=== PATIENT | male | born 1960 | race Caucasian/White ===

== ENCOUNTER 2019-06-16 11:34 | Emergency (ER) | payer OTHER, SELFPAY ==
--- NOTE | ~2019-06-16 | CT_ITS ---
EXAMINATION: CT lumbar spine wo con DATE: 06/16/2019 12:19 INDICATION: Low back pain. Fall. TECHNIQUE: Computed tomography (CT) of the lumbar spine was performed without intravenous contrast. A utomated exposure control and iterative reconstruction technique were employed. The dose-length produ ct was 812.73 mGy-cm. COMPARISON: [facility] AIF 11/01/2017 FINDINGS: There is an aortobifem bypass graft. There is a stent in the graft in the right external il iac artery distribution. There is 9 degrees dextrocurvature of lumbar spine. There is a burst fractur e of superior endplate of L1 with 2/5 loss of height. There is retropulsion of bone 2 mm into central spinal canal. There is mildly decreased disc height at L3-L4. The following disc levels are specific ally discussed: L1-L2: The disc does not extend beyond the endplate margin. There is mild bilateral facet joint osteo arthritis. There is no neural foraminal stenosis. There is no central canal stenosis. L2-L3: The disc is bulging. There is mild bilateral facet joint osteoarthritis. There is mild bilater al neural foraminal stenosis. There is no central canal stenosis. L3-L4: The disc is bulging. There is mild bilateral facet joint osteoarthritis. There is moderate scot ateral neural foraminal stenosis. There is mild central canal stenosis. L4-L5: The disc is bulging. There is mild bilateral facet joint osteoarthritis. There is moderate scot ateral neural foraminal stenosis. There is mild central canal stenosis. L5-S1: The disc is bulging. There is severe right and mild left facet joint osteoarthritis. There is mild right and moderate left neural foraminal stenosis. There is mild central canal stenosis. IMPRESSION: 1. Acute L1 burst fracture. 2. Moderate lumbar spondylosis. Reviewed, dictated and finalized at location A.
[2019-06-16 11:33] VITALS: BP 147/80; PULSE 77; RESP 18; TEMP 36.6; O2SAT 98
[2019-06-16] MEDS: ONDANSETRON INJ 4 MG/2 ML VIAL IV PUSH (12:22)
[2019-06-16] MEDS: MORPHINE SULFATE 4 MG/ML INJ IV PUSH ×2 (12:23→13:55)
--- NOTE | 2019-06-16 12:42 | ED.BACK ---
HPI - Back Pain/Injury General Chief Complaint: Back Pain/Injury <MEÑO England Last Filed: 06/16/19 12:47> Stated Complaint: LOW BACK PAIN <MEÑO [place] Last Filed: 06/16/19 12:47> Time Seen by Provider: 06/16/19 11:40 <MEÑO [place] Last Filed: 06/16/19 12:47> Source: patient <MEÑO [place] Filed: 06/16/19 12:47> Mode of arrival: ambulatory <MEÑO [place] Last Filed: 06/16/19 12:47> Limitations: no limitations <MEÑO [place] Filed: 06/16/19 12:47> History of Present Illness HPI Narrative: Patient is a 59-year-old male who presents to emergency department for evaluation of low back pain after falling off the back of a lawnmower onto the low back patient notes since he has had moderate aching pain across the lumbar spine patient denies head injury syncope loss of consciousness or other complaints. Patient presents per EMS injury occurred just prior to arrival. Patient denies other complaints <MEÑO [place] Last Filed: 06/16/19 12:47> Related Data Home Medications: Home Medications Medication Instructions Recorded Confirmed amlodipine 5 mg PO 06/16/19 atorvastatin 20 mg PO 06/16/19 atorvastatin 80 mg PO 06/16/19 rivaroxaban [Xarelto] 20 mg PO 06/16/19 <MEÑO [place] Last Filed: 06/16/19 12:47> Allergies/Adverse Reactions: Allergies Allergy/AdvReac Type Severity Reaction Status Date / Time No Known Allergies Allergy Verified 06/16/19 11:42 <MEÑO [place] Last Filed: 06/16/19 12:47> Review of Systems Review of Systems: All systems reviewed & are unremarkable except as noted in HPI and below <MEÑO [place] Last Filed: 06/16/19 12:47> PMFSH Family History Family History: Family History (Updated 10/13/15 @ 23:21 by DOCTOR UNKNOWN) Mother Family history of neuropathy Family history of primary malignant neoplasm of liver Patient's mother is Sibling Patient's brother is in good health Family history of malignant neoplasm of brain Patient's brother is Father Carcinoma of colon Patient's father is <Papa Causey PA-C - Last Filed: 06/16/19 12:47> Social History Social History: Social History (Updated 06/16/19 @ 12:44 by Papa Causey PA-C) Smoking status: Current every day smoker Alcohol intake: never <Papa Causey PA-C - Last Filed: 06/16/19 12:47> Exam Narrative: Exam Narrative: GENERAL: Well-appearing, well-nourished, and in no acute distress. HEAD: Normocephalic, atraumatic. EYES: PERRLA and EOMI. ENT: Nares clear, no rhinorrhea or epistaxis. Mucous membranes moist. Oropharynx without tonsillar hypertrophy exudate or other lesions. NECK: Supple. No adenopathy or masses. CHEST: Clear to auscultation. No respiratory distress. No wheezes rales or rhonchi HEART: Regular rate and rhythm. No murmur heard. Normal peripheral pulses. ABDOMEN: Soft, nontender, nondistended, normal active bowel sounds. EXTREMITIES: Normal range of motion. No edema. Tenderness across the lower lumbar spine worse in the midsegment. No midline cervical or thoracic tenderness SKIN: Warm, dry, no rash. NEURO: No focal deficits. Alert and oriented x3. Motor and sensory intact and symmetrical in the lower extremities. Neurovascularly intact PSYCH: Normal mood and affect. <Papa Causey PA-C - Last Filed: 06/16/19 12:47> Course Course Emergency Course: Patient in the room aware of case findings treatment plan and diagnosis <Papa Causey PA-C - Last Filed: 06/16/19 12:47> SCALPER OPERATOR/PA Physician Supervision For this patient encounter, I reviewed the SCALPER OPERATOR or PA documentation, treatment plan, and medical decision making; and I had [id number] time with this patient. The pneumonia Patient seen at bedside in conjunction with physician watts
[2019-06-16 13:08] VITALS: BP 154/89; PULSE 74; RESP 16; O2SAT 96
[2019-06-16 14:00] VITALS: BP 135/86; PULSE 78; RESP 18; TEMP 36.6; O2SAT 96
== END 2019-06-16 14:19 | disposition short-term general hospital (02) ==
PROVIDERS: Emergency Provider Emergency Medicine; PCP Emergency Medicine
DX: S32.011A Stable burst fracture of first lumbar vertebra, initial encounter for closed fracture (principal); F17.200 Nicotine dependence, unspecified, uncomplicated; W28.XXXA Contact with powered lawn mower, initial encounter
CPT/HCPCS: 72131; 96365; 96375; 96376; 99285; J0131; J2270; J2405

== ENCOUNTER 2019-07-12 22:18 | Emergency (ER) | payer OTHER, SELFPAY ==
[2019-07-12 22:32] VITALS: BP 194/96; PULSE 101; RESP 16; TEMP 36.8; O2SAT 95
--- NOTE | 2019-07-12 22:44 | ED.BACK ---
HPI - Back Pain/Injury General Chief Complaint: Back Pain/Injury Stated Complaint: tingling in arms/legs,chills/hot Time Seen by Provider: 07/12/19 22:30 Source: patient Mode of arrival: ambulatory Limitations: no limitations History of Present Illness HPI Narrative: 59-year-old man who comes in today complaining of increasing pain starting 4 days ago in his mid back. He has also had some nausea and chills. Patient states on June 15 of this year he was diagnosed with a burst fracture of L1 and he was treated at [facility] [place] [facility] for 4 days. He is now using a back brace when he is up and about. He states that he feels some tingling in his ulnar forearms bilaterally and on his lateral thighs bilaterally. He denies incontinence, difficulty urinating, fever, vomiting, rash or diarrhea. he states he has back pain after standing for approximately 10 minutes. He has had no falls or injuries. MD elicited complaint: back pain Pertinent past history: recent trauma Onset (ago): day(s) (4) Timing: constant Severity: moderate Quality: sharp Location: thoracic spine Radiation: abdomen Exacerbating factors: other (standing) Associated symptoms: chills and parasthesias Work related injury: No Related Data Home Medications Medication Instructions Recorded Confirmed amlodipine 5 mg PO DAILY 06/16/19 07/12/19 atorvastatin 20 mg PO DAILY 06/16/19 07/12/19 atorvastatin 80 mg PO DAILY 06/16/19 07/12/19 rivaroxaban [Xarelto] 20 mg PO DAILY 06/16/19 07/12/19 cyclobenzaprine 10 mg PO TID 07/12/19 07/12/19 oxycodone 10 mg PO QID 07/12/19 07/12/19 Allergies Allergy/AdvReac Type Severity Reaction Status Date / Time No Known Allergies Allergy Verified 06/16/19 11:42 Review of Systems Constitutional: Constitutional: Reports chills, Denies fatigue, Denies fever(s) and Denies weakness Eyes: Eyes: Denies change in vision and Denies photophobia ENT: Denies dysphagia, Denies nasal congestion and Denies sore throat Cardiovascular: Cardiovascular: Denies chest pain and Denies radiating jaw, neck or arm pain Respiratory: Respiratory: Denies cough, Denies dyspnea and Denies wheezing Gastrointestinal: Gastrointestinal: Denies abdominal pain, Denies nausea and Denies vomiting Genitourinary: Genitourinary: Denies dysuria and Denies urinary frequency Musculoskeletal: Musculoskeletal: Denies arthralgias and Denies joint swelling Integumentary/Breasts: Skin/Breast: Denies pruritus, Denies erythema and Denies rash Neurologic: Denies vertigo, Denies dizziness and Denies syncope Endocrine: Endocrine: Denies polydipsia and Denies polyuria Hematologic/Lymphatic: Hematologic/Lymphatic: Denies easy bleeding and Denies easy bruising Allergic/Immunologic: Allergic/Immunologic: Denies lip swelling and Denies wheezing PMFSH Past Medical History Medical History DVT (deep venous thrombosis) Dyslipidemia Fracture of L1 vertebra Hypertension Family History Family History (Updated 10/13/15 @ 23:21 by DOCTOR UNKNOWN) Mother Family history of neuropathy Family history of primary malignant neoplasm of liver Patient's mother is Sibling Patient's brother is in good health Family history of malignant neoplasm of brain Patient's brother is Father Carcinoma of colon Patient's father is Social History Social History Smoking status: Current every day smoker Alcohol intake: never Exam Const: General: healthy appearing and alert Orientation/consciousness: patient oriented x3 Limitations: no limitations Other: mild acute distress HENMT: Mouth: Yes moist mucous membranes Eyes: Conjunctivae: conjunctivae normal EOM: EOMs intact bilaterally Neck: Neck: normal visual inspection and no lymphadenopathy Resp: Effort & Inspection: normal respiratory effort and not labore
[2019-07-12 23:07] LABS: Basophils Absolute Auto 0.13 K/mm3 (0.00-0.10); Eosinophils Absolute Auto 0.58 K/mm3 (0.02-0.50); Eosinophils Percent Auto 4.5 % (1.0-6.0); Hematocrit 48.7 % (40.0-54.0); Hemoglobin 17.1 g/dL (14.0-18.0); Immature Granulocyte Absolute 0.06 K/mm3 (0.00-0.00); Immature Granulocyte Percent A 0.5 % (0.0-0.0); Lymphocytes Absolute Auto 3.91 K/mm3 (1.10-4.50); Lymphocytes Percent Auto 30.3 % (18.0-42.0); Mean Corpuscular HGB Conc 35.1 g/dL (32.0-36.0); Mean Corpuscular Hemoglobin 32.8 pg (27.0-31.0); Mean Corpuscular Volume 93.3 fL (78.0-102.0); Mean Platelet Volume 9.4 fl (8.7-11.0); Monocytes Absolute Auto 1.01 K/mm3 (0.10-0.90); Monocytes Percent Auto 7.8 % (2.0-11.0); Neutrophils Absolute Auto 7.2 K/mm3 (1.7-7.2); Neutrophils Percent Auto 55.9 % (50.0-70.0); Platelet Count Result 261 K/mm3 (150-420); Red Blood Count 5.22 M/mm3 (4.70-6.10); Red Cell Distribution Width 11.9 % (11.6-14.4); White Blood Count 12.9 K/mm3 (4.8-10.8)
[2019-07-12 23:14] LABS: Appearance Urine Clear (Clear); Bilirubin Urine 1+ (Negative); Color Urine Yellow (Yellow); Glucose Urine UA Negative (Negative); Ketones Urine Trace (Negative); Leukocyte Esterase Ur Negative (Negative); Nitrate Urine Negative (Negative); Protein Urine Trace (Negative); Specific Grav Ur 1.025 (1.010-1.020); pH Urine 6.5 (5.0-8.0)
[2019-07-12 23:22] LABS: Alanine Aminotransferase 33 U/L (16-63); Albumin Level 3.8 g/dL (3.4-5.0); Alkaline Phosphatase 106 U/L (46-116); Aspartate Amino Transferase 12 U/L (15-37); Bilirubin,Total 0.2 mg/dL (0.00-1.00); Blood Urea Nitrogen 12 mg/dL (7-18); Calcium 8.7 mg/dL (8.5-10.1); Carbon Dioxide 28 mmol/L (21-32); Estimated Glomerular Filt Rate > 60; Glucose 134 mg/dL (70-99); Total Protein 7.2 g/dL (6.4-8.2)
[2019-07-12 23:35] LABS: Add Urine Microscopic? YES; Bacteria Urine Trace /hpf; Blood Urine Trace-Intact (Negative); Squamous Epithelial Cell Urine None seen /hpf (Few); WBC Urine 0-3 /hpf (0-3)
[2019-07-12 23:36] LABS: Mucus Urine Moderate /lpf
[2019-07-12 23:48] LABS: CRP < 0.2 mg/dL (0.0-0.9)
[2019-07-12 23:50] VITALS: BP 144/80; PULSE 85; RESP 13; O2SAT 96
[2019-07-13 00:11] LABS: Erythrocyte Sedimentation Rate 9 mm/hr (0-20)
[2019-07-13 00:35] LABS: Chloride 106 mmol/L (98-108)
[2019-07-13 00:41] LABS: Anion Gap 14.6 mmol/L (7-16); Osmolality Calculated 301 mOsm/kg (285-295); Potassium 3.6 mmol/L (3.5-5.1); Sodium 145 mmol/L (136-145)
== END 2019-07-12 23:57 | disposition home or self-care (01) ==
PROVIDERS: Emergency Provider Emergency Medicine; PCP Emergency Medicine
DX: S32.019S Unspecified fracture of first lumbar vertebra, sequela (principal); Z86.718 Personal history of other venous thrombosis and embolism; E78.5 Hyperlipidemia, unspecified; I10 Essential (primary) hypertension; F17.200 Nicotine dependence, unspecified, uncomplicated
CPT/HCPCS: 36415; 80053; 81001; 85025; 85652; 86140; 99283; A9270

== ENCOUNTER 2019-07-30 07:46 | Outpatient (RCR) | payer OTHER, SELFPAY ==
--- NOTE | 2019-07-30 08:12 | PTOPEVAL ---
Thank you for referring Maurice Israel to [facility]. Please review, sign, date and return this plan of care KEISHA. I agree with and certify that the following plan of care is medically necessary. Referring Physician Date Admitting Provider: Attending Provider: PHYSICIAN NOT ON STAFF Referring Provider: *PT Outpatient Evaluation Start: 07/30/19 07:03 Freq: Status: Active Protocol: Document 07/30/19 07:00 Manda (Rec: 07/30/19 08:09 [facility] [id number]) Therapy Assessment Status Assessment Status Assessment Status Evaluation Outpatient Past Medical History Cardiovascular History Hx Chest Pain Yes Hx Coronary Artery Bypass Graft Yes Hx Coronary Artery Disease Yes Hx Hypercholesterolemia Yes Hx Hypertension Yes Gastrointestinal History Hx Appendectomy Yes Musculoskeletal History Hx Back Injury Yes: L-1 Evaluation Information Problem Diagnosis closed burst fracture of the lumbar spine Onset 06/16/19 Additional Evaluation Detail oswestry = 56% Subjective Information patient reports he was injured Query Text:As Reported By Patient/ 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 he reports he fractured his L1 vertebrae in a burst fracture. he reports he is still having pain in the back and inability to tolerate standing activities. he reports he has increased pain with standing, walking, and bending/lifting. he reports he is not back to work. Prior Level of Function Comments Additional Prior Level of Function prior to injury, patient Comments reports no issues. he reports he was able to stand, walk, lift, and work without restrictions. Pain Assessment Timing of Pain Assessment Timing of Pain Assessment Assessment Pain Scale Pain Scale Used Numeric (1 - 10) Self Report Pain Assessment Lower Back Reported Pain Level 3 Pain Description Aching,Dull,Sharp,Stabbing Lowest Pain Intensity 3 Greatest Pain Intensity 8 Pain Aggravating Factors Exercise/Activity,Lifting, Walking,Weight Bearing/ Standing Pain Score Pain Score 3: Self Report Cervical and Lumbar ROM Lumbar ROM Lumbar Flexion (0-90)
--- NOTE | 2019-11-10 08:39 | PCPTNOTE ---
patient has not been to therapy in several months. as of this date, patient will be dc'd from skilled PT services and all progress towards goals will be taken from patient's most recent evaluation/note. BERNY
== END 2019-08-23 23:59 | disposition home or self-care (01) ==
LOC: CHSPT 07:46
PROVIDERS: PCP Internal Medicine
DX: S32.001G Stable burst fracture of unspecified lumbar vertebra, subsequent encounter for fracture with delayed healing (principal)
CPT/HCPCS: 97014; 97110; 97140; 97161; G0283

== ENCOUNTER 2019-12-27 10:08 | Emergency (ER) | payer OTHER, SELFPAY ==
[2019-12-27 10:40] VITALS: BP 150/83; PULSE 66; RESP 16; TEMP 36.8; O2SAT 97
--- NOTE | 2019-12-27 11:15 | ED.EXTPRO ---
HPI - Extremity Problem General Chief complaint: Extremity Problem,Nontraumatic Stated complaint: L hip Pain, Time Seen by Provider: 12/27/19 11:16 Source: patient Mode of arrival: ambulatory Limitations: no limitations History of Present Illness HPI Narrative: 59-year-old man with a history of peripheral vascular disease status post bypass in the femoral arteries comes in today complaining of pain in his left hip. Patient states that is mildly tender to palpation but he has no history of fall or strain. Given his history of peripheral vascular disease he is concerned that he may have a vascular event going on. He denies any numbness, coldness, blueness or pallor to his legs as he had in his past thromboembolic events. Has a history of left iliotibial band surgery. MD Complaint: joint paint (or pain) Onset (ago): day(s) (1) Pain Consistency: intermittent Location: left and other ( Hip) Radiation: none Relieving factors: rest Exacerbating factors: walking and palpation Associated symptoms: denies other symptoms Context: history of peripheral vascular disease Related Data Home Medications Medication Instructions Recorded Confirmed amlodipine 5 mg PO DAILY 06/16/19 12/27/19 atorvastatin 20 mg PO DAILY 06/16/19 12/27/19 rivaroxaban [Xarelto] 20 mg PO DAILY 06/16/19 12/27/19 Allergies Allergy/AdvReac Type Severity Reaction Status Date / Time No Known Allergies Allergy Verified 06/16/19 11:42 Review of Systems Constitutional: Constitutional: Denies chills and Denies fever(s) Cardiovascular: Cardiovascular: Denies chest pain and Denies radiating jaw, neck or arm pain Respiratory: Respiratory: Denies cough and Denies dyspnea Gastrointestinal: Gastrointestinal: Denies abdominal pain, Denies nausea and Denies vomiting Genitourinary: Genitourinary: Denies dysuria and Denies urinary frequency Musculoskeletal: Musculoskeletal: Reports no additional musculoskeletal complaints, Reports arthralgias, Denies joint swelling and Denies muscle cramps Integumentary/Breasts: Skin/Breast: Denies pruritus, Denies erythema and Denies rash Neurologic: Denies vertigo, Denies dizziness and Denies syncope Hematologic/Lymphatic: Hematologic/Lymphatic: Denies easy bleeding and Denies easy bruising Allergic/Immunologic: Allergic/Immunologic: Denies lip swelling and Denies tongue swelling [facility] Past Medical History Medical History (Updated 12/27/19 @ 11:32 by Arturo Smith MD) DVT (deep venous thrombosis) Dyslipidemia Fracture of L1 vertebra Hypertension Peripheral vascular disease Surgical History Surgical History (Updated 12/27/19 @ 11:29 by Arturo Smith MD) History of hip surgery left, iliotibial band S/P femoral-femoral bypass surgery Family History Family History (Updated 10/13/15 @ 23:21 by DOCTOR UNKNOWN) Mother Family history of neuropathy Family history of primary malignant neoplasm of liver Patient's mother is Sibling Patient's brother is in good health Family history of malignant neoplasm of brain Patient's brother is Father Carcinoma of colon Patient's father is Social History Social History Smoking status: Current every day smoker Alcohol intake: never Exam Const: General: no acute distress and alert Orientation/consciousness: patient oriented x3 Limitations: no limitations HENMT: Head: normal to inspection General nose exam: Normal nares present Face and sinus: normal facial exam Eyes: Conjunctivae: conjunctivae normal Pupils: Equal, round and reactive pupils present EOM: EOMs intact bilaterally Resp: Effort & Inspection: normal respiratory effort Auscultation: clear to auscultation bilaterally Cardio: Rate: regular rate Rhythm: regular rhythm Heart sounds: no murmurs Skin: General skin exam: normal color, no jaundice and no pallor Rashes:
[2019-12-27 11:35] VITALS: RESP 16
== END 2019-12-27 11:35 | disposition home or self-care (01) ==
PROVIDERS: Emergency Provider Emergency Medicine; PCP Internal Medicine
DX: M25.552 Pain in left hip (principal)
CPT/HCPCS: 99281

== ENCOUNTER 2019-12-29 11:26 | Outpatient (CLI) | payer OTHER, SELFPAY ==
--- NOTE | ~2019-12-29 | XR_ITS ---
EXAMINATION: XR hip LT min 2V DATE: 12/29/2019 11:58 INDICATION: Left hip pain. TECHNIQUE: 2 views of left hip were obtained. COMPARISON: None. FINDINGS: Bone alignment is normal. No fracture. There is mild left hip osteoarthritis. IMPRESSION: 1. Mild left hip osteoarthritis. Reviewed, dictated and finalized at location A.
--- NOTE | ~2019-12-29 | XR_ITS ---
EXAMINATION: XR lumbar spine 2-3V DATE: 12/29/2019 11:58 INDICATION: Left hip and leg pain. TECHNIQUE: 3 views of lumbar spine were obtained. COMPARISON: CT lumbar spine 06/16/2019 FINDINGS: There is 9 degrees dextrocurvature of lumbar spine. There is a chronic compression fracture of L1 with 2/5 loss of height. There is mildly decreased disc height at T12-L1. There are endplate o steophytes at most levels. There is multilevel mild facet joint osteoarthritis. There is a vascular s tent in right pelvis. IMPRESSION: 1. Mild lumbar spondylosis. Reviewed, dictated and finalized at location A. IMPRESSION: 1. Mild lumbar spondylosis.
== END 2019-12-29 11:27 | disposition home or self-care (01) ==
PROVIDERS: PCP Internal Medicine; Visit Provider Internal Medicine
DX: M25.552 Pain in left hip (principal)
CPT/HCPCS: 72100; 73502

== ENCOUNTER 2020-01-10 09:48 | Outpatient (RCR) | payer OTHER, SELFPAY ==
--- NOTE | 2020-01-10 11:15 | PTOPEVAL ---
Thank you for referring Maurice Israel to [facility].? The patient is scheduled to be seen for therapy? __3__x/week for 12 visits. Please review, sign, date and return this plan of care KEISHA. I agree with and certify that the following plan of care is medically necessary. Referring Physician Date Admitting Provider: Attending Provider: Luciano Cornelius MD Referring Provider: *PT Outpatient Evaluation Start: 01/10/20 10:10 Freq: Status: Active Protocol: Document 01/10/20 10:11 KALLIE (Rec: 01/10/20 11:14 KALLIE [id number]) Outpatient Past Medical History Cardiovascular History Hx Chest Pain Yes Hx Coronary Artery Bypass Graft Yes Hx Coronary Artery Disease Yes Hx Deep Vein Thrombosis Yes Hx Hypercholesterolemia Yes Hx Hypertension Yes Gastrointestinal History Hx Appendectomy Yes Hx Cholecystectomy Yes Musculoskeletal History Hx Back Injury Yes: L-1 Hx Other Musculoskeletal Disorders Yes: ARM, ELBOW, BACK SURGERY Evaluation Information Problem Subjective Information Pt. broke his back on 06/16/19. Query Text:As Reported By Patient/ He states that he attempted Family therapy but pain worsened with treatment. He states that things got worse. He reports that pain got intense on 12/26. He states that he has not done any aggressive activity. He states that most pain is in the left leg. He states that back and leg pain is constant. He describes pain going down the lateral thigh and into the left [place]. He reports that he occassionally has to get out a walker due to pain. He reports that he has to sleep in a recliner because he cannot lay flat. Prior Level of Function Comments Additional Prior Level of Function Pt. reports he worked for a [employer]. He states that prior to June he had no difficulty in regards to mobility and completing work related activities. Pain Assessment Timing of Pain Assessment Timing of Pain Assessment Pre-Treatment Pain Scale Pain Scale Used Numeric (1 - 10) Self Report Pain Assessment Left Leg(s) Reported Pain Level 2 Pain Description
--- NOTE | 2020-05-09 06:54 | PCPTNOTE ---
Pt. attended a total of 2 treatment sessions from 01-10-20 to 01-12-20. He has failed to return to the clinic or contact the clinic. He will be discharged from our care at this time. Jc Simon, MPT
== END 2020-01-12 23:59 | disposition home or self-care (01) ==
LOC: CHSPT 09:48
PROVIDERS: PCP Internal Medicine; Visit Provider Internal Medicine
DX: M54.9 Dorsalgia, unspecified (principal); M25.559 Pain in unspecified hip
CPT/HCPCS: 97014; 97110; 97161; G0283

== ENCOUNTER 2020-01-18 01:27 | Emergency (ER) | payer OTHER, SELFPAY ==
--- NOTE | ~2020-01-18 | CT_ITS ---
EXAMINATION: CT brain wo con EXAM DATE: 01/18/2020 05:26 INDICATION: Arm paresthesia. TECHNIQUE: Spiral CT of the head was performed without contrast. Axial, coronal and sagittal images were reviewed. The dose-length product (DLP) for this examination was 605.33 mGy-cm. The exposure w as tailored according to patient size, and iterative reconstruction (ASIR) was used as additional dos e reduction technique. Comparison is made to prior examination from 02/20/2016. FINDINGS: There is no acute intraparenchymal hemorrhage. No evidence of intraparenchymal brain mass lesion. No evidence of acute infarction. Please note that initial head CT has limited sensitivity f or small or acute infarctions. There is mild periventricular and subcortical hypodensity, nonspecific but probably related to small vessel ischemic disease. There is intracranial carotid arteriosclero sis. There are no extra-axial collections. There is no mass effect or midline shift. The orbits ar e unremarkable. Soft tissue is unremarkable. Mild ethmoid mucoperiosteal thickening. IMPRESSION: 1. No acute intracranial findings. 2. Mild microangiopathy. Reviewed, dictated and finalized at location G. CHOOL ADVISER
[2020-01-18 01:30] VITALS: BP 186/86; PULSE 74; RESP 18; TEMP 36.8; O2SAT 97
[2020-01-18 01:39] LABS: Glucose Point of Care 95 (65-105)
[2020-01-18 01:40] VITALS: BP 159/85; PULSE 75; RESP 20; O2SAT 96
--- NOTE | 2020-01-18 01:40 | ECG_ITS ---
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
--- NOTE | 2020-01-18 01:55 | PC.NURSE ---
No neuro deficits since arrival to ER. Pt. reports sxs have subsided on arrival to ER and is feeling better. VSS. at this time.
[2020-01-18 02:13] LABS: Basophils Absolute Auto 0.09 K/mm3 (0.00-0.10); Basophils Percent Auto 0.7 % (0.0-1.0); Eosinophils Absolute Auto 0.37 K/mm3 (0.02-0.50); Eosinophils Percent Auto 2.9 % (1.0-6.0); Immature Granulocyte Absolute 0.05 K/mm3 (0.00-0.00); Immature Granulocyte Percent A 0.4 % (0.0-0.0); Lymphocytes Absolute Auto 2.95 K/mm3 (1.10-4.50); Lymphocytes Percent Auto 23.4 % (18.0-42.0); Mean Corpuscular HGB Conc 34.7 g/dL (32.0-36.0); Mean Corpuscular Hemoglobin 32.3 pg (27.0-31.0); Mean Corpuscular Volume 93.2 fL (78.0-102.0); Mean Platelet Volume 9.3 fl (8.7-11.0); Monocytes Absolute Auto 0.98 K/mm3 (0.10-0.90); Monocytes Percent Auto 7.8 % (2.0-11.0); Neutrophils Absolute Auto 8.2 K/mm3 (1.7-7.2); Neutrophils Percent Auto 64.8 % (50.0-70.0); Platelet Count Result 270 K/mm3 (150-420); Red Blood Count 5.26 M/mm3 (4.70-6.10); Red Cell Distribution Width 11.9 % (11.6-14.4); White Blood Count 12.6 K/mm3 (4.8-10.8)
[2020-01-18 02:25] LABS: Partial Thromboplastin Time 28.5 SEC (22.3-31.6); Prothrombin Time 10.7 Seconds (9.64-11.0)
[2020-01-18 02:31] LABS: Alanine Aminotransferase 40 U/L (16-63); Albumin Level 3.9 g/dL (3.4-5.0); Alkaline Phosphatase 78 U/L (46-116); Anion Gap 11 mmol/L (8-16); Aspartate Amino Transferase 38 U/L (15-37); Bilirubin,Total 0.5 mg/dL (0.00-1.00); Blood Urea Nitrogen 11 mg/dL (7-18); Calcium 8.8 mg/dL (8.5-10.1); Carbon Dioxide 25 mmol/L (21-32); Chloride 105 mmol/L (98-108); Estimated CRCL calculation 74 ml/min; Estimated Glomerular Filt Rate > 60; Glucose 114 mg/dL (70-99); Osmolality Calculated 292 mOsm/kg (285-295); Potassium 3.9 mmol/L (3.5-5.1); Sodium 141 mmol/L (136-145); Total Protein 7.4 g/dL (6.4-8.2)
[2020-01-18 02:36] VITALS: BP 130/69; PULSE 70; RESP 18; O2SAT 97
[2020-01-18 02:38] LABS: Ethanol < 3 mg/dL (0-6); Troponin I < 0.02 ng/mL (0.00-0.056)
--- NOTE | 2020-01-18 02:43 | ED.GENADULT ---
HPI - General Adult General Chief complaint: Neuro Symptoms/Deficit Stated complaint: Tingling of Extremities Source: patient History of Present Illness HPI narrative: This is a 59-year-old male presents from home after he called EMS at about 1 in the morning he was complaining of some numbness and tingling in his some left arm and and face with no weakness no neurological deficit. The patient denied any slurred speech no headaches no blurry vision no nausea vomiting, currently no chest pain or shortness of breath. The patient initially had a blood pressure 186/86 but repeat blood pressure was 130/69. Patient has a history of peripheral vascular disease with fem-pop artery bypass with stenting, history of hyper cholesterolemia and hypertension. Symptoms lasted [id number] and it completely resolved, again with no weakness in his upper or lower extremities with no neurological deficits. Onset (ago): hour(s) Location: face and upper extremity Radiation: non-radiation Severity: mild Relieving factors: none Exacerbating factors: none Related Data Home Medications Medication Instructions Recorded Confirmed amlodipine 5 mg PO DAILY 06/16/19 01/18/20 atorvastatin 20 mg PO DAILY 06/16/19 01/18/20 warfarin 5 mg PO DAILY 01/18/20 01/18/20 Allergies Allergy/AdvReac Type Severity Reaction Status Date / Time No Known Allergies Allergy Verified 06/16/19 11:42 Review of Systems Review of Systems: All systems reviewed & are unremarkable except as noted in HPI and below PMFSH Past Medical History Medical History DVT (deep venous thrombosis) Dyslipidemia Fracture of L1 vertebra Hypertension Peripheral vascular disease Surgical History Surgical History History of hip surgery left, iliotibial band S/P femoral-femoral bypass surgery Family History Family History Mother Family history of neuropathy Family history of primary malignant neoplasm of liver Patient's mother is Sibling Patient's brother is in good health Family history of malignant neoplasm of brain Patient's brother is Father Carcinoma of colon Patient's father is Social History Social History Smoking status: Current every day smoker Alcohol intake: never Gender identity (if verbalized by the patient): Male Exam Const: General: no acute distress Orientation/consciousness: patient oriented x3 HENMT: Head: normal to inspection Eyes: Conjunctivae: conjunctivae normal Pupils: Equal, round and reactive pupils present EOM: EOMs intact bilaterally Neck: Neck: normal visual inspection and no meningeal signs Chest: Chest palpation & inspection: normal inspection of the chest Resp: Effort & Inspection: normal respiratory effort Auscultation: clear to auscultation bilaterally Cardio: Rate: regular rate Rhythm: regular rhythm GI: GI Palp: Yes Soft to palpation Percussion: Yes normal to percussion Back/Spine/Pelvis: Back: no CVA tenderness Skin: General skin exam: normal color Rashes: no rashes Neuro: General: patient oriented x3, moves all extremities, no meningeal signs, no focal motor deficits and CN's II-XI intact bilaterally Speech: normal speech Gait exam (Neuro): Normal gait present Extrem: General: normal to inspection and no pedal edema Psych: Appearance: grossly normal Mental Status: mental status grossly normal Affect: normal affect Course Course Emergency Course: Reassessment of patient currently no neurological deficits no numbness or tingling blood pressure currently at 130/69 resting comfortably with no residual affects. Vital Signs Vital signs: Vital Signs Temperature 36.8 C 01/18/20 01:30 Pulse Rate 74 01/18/20 0
[2020-01-18 02:52] VITALS: BP 120/69; PULSE 70; RESP 18; TEMP 36.6; O2SAT 98
== END 2020-01-18 02:56 | disposition home or self-care (01) ==
PROVIDERS: Emergency Provider Emergency Medicine; PCP Internal Medicine
DX: R20.2 Paresthesia of skin (principal); I73.9 Peripheral vascular disease, unspecified; I10 Essential (primary) hypertension; E78.00 Pure hypercholesterolemia, unspecified; Z86.718 Personal history of other venous thrombosis and embolism; Z79.01 Long term (current) use of anticoagulants
CPT/HCPCS: 36415; 70450; 80053; 80307; 82948; 84484; 85025; 85610; 85730; 93005; 99283; 99284

== ENCOUNTER 2020-03-22 09:22 | Emergency (ER) | payer OTHER, SELFPAY ==
[2020-03-22] VITALS (27 sets, daily range): BP systolic 140–163; BP diastolic 75–93; PULSE 55–68; RESP 7–22; TEMP 36.7; O2SAT 95–100
--- NOTE | ~2020-03-22 | XR_ITS ---
EXAMINATION: XR chest 1V portable DATE: 03/22/2020 09:57 INDICATION: Chest pain. TECHNIQUE: A single frontal view of the chest was obtained. COMPARISON: Chest 2 views 02/20/2016 FINDINGS: A calcified right lung nodule is consistent with old granulomatous disease. No pleural effu mychal or pneumothorax. The heart size is normal. IMPRESSION: 1. No acute cardiopulmonary disease. Reviewed, dictated and finalized at location A. TING MACHINE OPERATOR
--- NOTE | ~2020-03-22 | CT_ITS ---
EXAMINATION: CTA chest PE protocol DATE: 03/22/2020 11:37 INDICATION: Chest pain radiating to the left arm. TECHNIQUE: Computed tomography angiography (CTA) of the chest was performed with 100 mL Omnipaque-350 intravenous contrast timed to evaluate the pulmonary arteries. Coronal maximum intensity projection 3D-reconstructions were created by the technologist. Automated exposure control and iterative reconst ruction technique were employed. The dose-length product was 478.17 mGy-cm. COMPARISON: None. FINDINGS: There is mild atelectasis bilaterally. A calcified right lung nodule is consistent with old granulomatous disease. No pleural effusion. The heart size is normal. No pericardial effusion. There are coronary artery calcifications. There is no pulmonary embolus. There are changes of cholecystect gallito. There is a chronic burst fracture of L1. IMPRESSION: 1. No pulmonary embolus. Reviewed, dictated and finalized at location A. OGRAPHIC PHOTOGRAPHER IMPRESSION: 1. No pulmonary embolus.
--- NOTE | 2020-03-22 09:31 | ECG_ITS ---
Measurements Intervals [place] Rate: 70 P: 37 VT: 133 QRS: -41 QRSD: 94 T: 42 QT: 392 QTc: 425 Interpretive Statements SINUS RHYTHM LEFT AXIS DEVIATION POOR R WAVE PROGRESSION, ANTERIOR LEADS BASELINE ARTIFACT- V1, V5 BORDERLINE ECG Electronically Signed On 03-22-2020 10:31:01 CAMPAIGN CONSULTANT by Fox Edwards D.O.
[2020-03-22 09:53] LABS: Eosinophils Absolute Auto 0.33 K/mm3 (0.02-0.50); Eosinophils Percent Auto 3.2 % (1.0-6.0); Hematocrit 44.8 % (40.0-54.0); Hemoglobin 15.6 g/dL (14.0-18.0); Immature Granulocyte Absolute 0.07 K/mm3 (0.00-0.00); Immature Granulocyte Percent A 0.7 % (0.0-0.0); Lymphocytes Absolute Auto 2.56 K/mm3 (1.10-4.50); Mean Corpuscular HGB Conc 34.8 g/dL (32.0-36.0); Mean Corpuscular Hemoglobin 32.9 pg (27.0-31.0); Mean Corpuscular Volume 94.5 fL (78.0-102.0); Mean Platelet Volume 9.5 fl (8.7-11.0); Monocytes Absolute Auto 0.97 K/mm3 (0.10-0.90); Monocytes Percent Auto 9.5 % (2.0-11.0); Neutrophils Absolute Auto 6.2 K/mm3 (1.7-7.2); Neutrophils Percent Auto 60.6 % (50.0-70.0); Platelet Count Result 249 K/mm3 (150-420); Red Blood Count 4.74 M/mm3 (4.70-6.10); Red Cell Distribution Width 12.1 % (11.6-14.4); White Blood Count 10.2 K/mm3 (4.8-10.8)
[2020-03-22] MEDS: ASPIRIN 81 MG CHEWABLE TABLET 324 MG PO (10:00)
--- NOTE | 2020-03-22 10:00 | PC.NURSE ---
PT IS CURRENTLY 95% ON RA. RN PLACED PT ON 2L NC FOR CARDIAC PROTOCOL.
[2020-03-22 10:09] LABS: BNP 8.1 pg/mL (0-100)
[2020-03-22 10:10] LABS: Alanine Aminotransferase 39 U/L (16-63); Albumin Level 3.9 g/dL (3.4-5.0); Alkaline Phosphatase 71 U/L (46-116); Anion Gap 7 mmol/L (8-16); Aspartate Amino Transferase 23 U/L (15-37); Bilirubin,Total 0.3 mg/dL (0.00-1.00); Blood Urea Nitrogen 12 mg/dL (7-18); Calcium 8.7 mg/dL (8.5-10.1); Carbon Dioxide 26 mmol/L (21-32); Chloride 103 mmol/L (98-108); Estimated CRCL calculation 73 ml/min; Estimated Glomerular Filt Rate > 60; Glucose 130 mg/dL (70-99); Lipase 392 U/L (73-393); Osmolality Calculated 283 mOsm/kg (285-295); Potassium 3.8 mmol/L (3.5-5.1); Sodium 136 mmol/L (136-145); Troponin I 6.5 ng/L (0.00-60.4)
[2020-03-22 10:22] LABS: INR 0.9; Partial Thromboplastin Time 26.5 SEC (23.90-30.70); Prothrombin Time 10.4 Seconds (9.50-12.10)
[2020-03-22 10:51] LABS: D Dimer 1.09 mg/L (0.19-0.50)
--- NOTE | 2020-03-22 13:21 | PC.NURSE ---
RN ACCOMPANIED ERP INTO ROOM 2 TO EXPLAIN PLAN OF CARE AND DISCHARGE OPTIONS. PATIENT STATES UNDERSTANDING AND AGGREEANCE WITH PLAN OF CARE.
[2020-03-22 13:55] LABS: Troponin I 7.5 ng/L (0.00-60.4)
--- NOTE | 2020-03-22 14:12 | ED.CHESTPAIN ---
HPI - Chest Pain General Chief Complaint: Chest Pain Stated Complaint: AMBULANCE Time Seen by Provider: 03/22/20 09:35 Source: patient and family Mode of arrival: ambulatory Limitations: no limitations History of Present Illness HPI narrative: Patient presents with complaints of chest pain prior to arriving in ER. This discomfort started after heavy work. The discomfort was midsternal and described as a tightness in his chest. He also had some aching feeling in his posterior left arm. He was diaphoretic for a few minutes with this and had no nausea. These symptoms spontaneously resolved with rest before he came in. He has no chest pain now. Pertinent past history: other (known vascular disease, and right fem pop bypass) Onset: during exertion Pain location: parasternal Pain radiation: left arm Severity: moderate Quality: tightness Relieving factors: rest Associated symptoms: diaphoresis Risk Factors Coronary artery disease risk factors: smoking history Related Data Home Medications Medication Instructions Recorded Confirmed amlodipine 5 mg PO DAILY 06/16/19 03/22/20 atorvastatin 20 mg PO DAILY 06/16/19 03/22/20 warfarin 5 mg PO DAILY 01/18/20 03/22/20 Allergies Allergy/AdvReac Type Severity Reaction Status Date / Time No Known Allergies Allergy Verified 06/16/19 11:42 Review of Systems Constitutional: Constitutional: Reports no additional constitutional complaints Eyes: Eyes: Reports no additional eye complaints ENT: Reports system reviewed and no additional complaints, except as documented Cardiovascular: Cardiovascular: Reports no additional cardiovascular complaints Respiratory: Respiratory: Reports no additional respiratory complaints Gastrointestinal: Gastrointestinal: Reports no additional gastrointestinal complaints Genitourinary: Genitourinary: Reports no additional male genitourinary complaints Musculoskeletal: Musculoskeletal: Reports no additional musculoskeletal complaints Integumentary/Breasts: Skin/Breast: Reports system reviewed and no additional complaints, except as docu Neurologic: Reports system reviewed and no additional complaints, except as documented Psychiatric: Psychiatric: Reports no additional psychiatric complaints Endocrine: Endocrine: Reports no additional endocrine complaints Hematologic/Lymphatic: Hematologic/Lymphatic: Reports no additional hematologic/lymphatic complaints Allergic/Immunologic: Allergic/Immunologic: Reports no additional allergic/immunologic complaints [facility] Past Medical History Medical History DVT (deep venous thrombosis) Dyslipidemia Fracture of L1 vertebra Hypertension Peripheral vascular disease Surgical History Surgical History History of hip surgery left, iliotibial band S/P femoral-femoral bypass surgery Family History Family History Mother Family history of neuropathy Family history of primary malignant neoplasm of liver Patient's mother is Sibling Patient's brother is in good health Family history of malignant neoplasm of brain Patient's brother is Father Carcinoma of colon Patient's father is Social History Social History Smoking status: Current every day smoker Alcohol intake: never Gender identity (if verbalized by the patient): Male Exam Const: General: cooperative Nutritional Appearance: average body habitus Orientation/consciousness: oriented to person, oriented to place and oriented to time HENMT: Head: normal to inspection Ears: hearing grossly normal bilaterally, external ears normal and TM's normal bilaterally General nose exam: Normal external nose present Face and sinus: normal facial exam Mouth: Yes moist mucous membranes Throat:
== END 2020-03-22 14:36 | disposition home or self-care (01) ==
PROVIDERS: Emergency Provider Emergency Medicine; PCP Internal Medicine
DX: I20.9 Angina pectoris, unspecified (principal)
CPT/HCPCS: 36415; 71045; 71275; 80053; 83690; 83880; 84484; 85025; 85380; 85610; 85730; 93005; 99283; 99284; A9270; Q9965; Q9967

== ENCOUNTER 2020-04-04 09:54 | Outpatient (CLI) | payer OTHER, SELFPAY ==
[2020-04-04 10:43] LABS: SARS-CoV-2 Ag Positive (Negative)
== END 2020-04-04 09:55 | disposition home or self-care (01) ==
PROVIDERS: PCP Internal Medicine; Visit Provider Internal Medicine
DX: U07.1 COVID-19 (principal)
CPT/HCPCS: 87426; C9803

== ENCOUNTER 2020-08-03 17:25 | Observation (INO) | payer OTHER, SELFPAY ==
--- NOTE | ~2020-08-03 | XR_ITS ---
EXAMINATION: XR chest 1V portable INDICATION: Upper chest pain and shortness of breath TECHNIQUE: Portable AP chest at 1814 hours COMPARISON: 03/22/2020 FINDINGS: There are patchy bilateral airspace opacities. No pleural effusion or pneumothorax is ident ified. The cardiomediastinal silhouette is normal. The visualized osseous structures are unremarkable . IMPRESSION: 1. Patchy bilateral airspace opacities which could reflect pneumonia and/or pulmonary edema and/or at electasis. Reviewed, dictated and finalized at location A. IMPRESSION: 1. Patchy bilateral airspace opacities which could reflect pneumonia and/or pul monary edema and/or atelectasis.
--- NOTE | ~2020-08-03 | CT_ITS ---
EXAMINATION: CTA chest PE protocol DATE: 08/03/2020 18:48 INDICATION: Chest pain and shortness of breath TECHNIQUE: Computed tomography angiography (CTA) of the chest was performed with 100 mL Omnipaque-350 intravenous contrast timed to evaluate the pulmonary arteries. Coronal maximum intensity projection 3D-reconstructions were created by the technologist. The dose-length product (DLP) was 818.91 mGy-cm. Automated exposure control and iterative reconstruction technique were employed. COMPARISON: 04/01/2020 FINDINGS: The pulmonary arteries are well-opacified. No pulmonary embolism is identified. There is mi ld dependent atelectasis. The lungs are free of focal airspace opacities. No pathologically enlarged thoracic lymph nodes are identified. The heart size is normal. There is no pleural effusion or pneumo thorax. The gallbladder is surgically absent. A chronic burst fracture of L1 is again noted. IMPRESSION: 1. No pulmonary embolism or acute cardiopulmonary abnormality. Reviewed, dictated and finalized at location A.
[2020-08-03 17:25] VITALS: BP 158/90; PULSE 73; RESP 20; TEMP 36.8; O2SAT 98
--- NOTE | 2020-08-03 17:30 | ECG_ITS ---
Measurements Intervals [place] Rate: 63 P: 34 WA: 142 QRS: -37 QRSD: 90 T: 67 QT: 413 QTc: 424 Interpretive Statements SINUS RHYTHM LEFT AXIS DEVIATION INCOMPLETE RIGHT BUNDLE BRANCH BLOCK POOR R WAVE PROGRESSION, ANTERIOR LEADS CONSIDER INFERIOR INFARCT, AGE INDETERMINATE BASELINE ARTIFACT- I, III ABNORMAL ECG Electronically Signed On 08-03-2020 20:36:17 CDT by Fox Edwards D.O.
[2020-08-03 17:51] LABS: Basophils Absolute Auto 0.09 K/mm3 (0.00-0.10); Basophils Percent Auto 0.8 % (0.0-1.0); Eosinophils Absolute Auto 0.24 K/mm3 (0.02-0.50); Eosinophils Percent Auto 2.2 % (1.0-6.0); Hemoglobin 16.1 g/dL (14.0-18.0); Immature Granulocyte Absolute 0.03 K/mm3 (0.00-0.00); Immature Granulocyte Percent A 0.3 % (0.0-0.0); Lymphocytes Absolute Auto 3.02 K/mm3 (1.10-4.50); Lymphocytes Percent Auto 27.6 % (18.0-42.0); Mean Corpuscular HGB Conc 34.3 g/dL (32.0-36.0); Mean Corpuscular Hemoglobin 31.6 pg (27.0-31.0); Mean Corpuscular Volume 92.3 fL (78.0-102.0); Mean Platelet Volume 9.6 fl (8.7-11.0); Monocytes Absolute Auto 0.59 K/mm3 (0.10-0.90); Monocytes Percent Auto 5.4 % (2.0-11.0); Neutrophils Percent Auto 63.7 % (50.0-70.0); Platelet Count Result 257 K/mm3 (150-420); Red Blood Count 5.09 M/mm3 (4.70-6.10); Red Cell Distribution Width 11.6 % (11.6-14.4)
[2020-08-03 18:02] VITALS: PULSE 73
[2020-08-03 18:09] LABS: Prothrombin Time 10.6 Seconds (9.50-12.10)
[2020-08-03 18:13] LABS: Alanine Aminotransferase 38 U/L (16-63); Albumin Level 3.8 g/dL (3.4-5.0); Alkaline Phosphatase 76 U/L (46-116); Anion Gap 11 mmol/L (8-16); Aspartate Amino Transferase 19 U/L (15-37); Bilirubin,Total 0.4 mg/dL (0.00-1.00); Blood Urea Nitrogen 14 mg/dL (7-18); Calcium 8.5 mg/dL (8.5-10.1); Carbon Dioxide 24 mmol/L (21-32); Chloride 106 mmol/L (98-108); Estimated CRCL calculation 73 ml/min; Estimated Glomerular Filt Rate > 60; Glucose 136 mg/dL (70-99); Lipase 753 U/L (73-393); NT Pro B Type Natriuretic Pept 71 pg/mL (0-125); Osmolality Calculated 294 mOsm/kg (285-295); Potassium 3.3 mmol/L (3.5-5.1); Sodium 141 mmol/L (136-145); Total Protein 6.9 g/dL (6.4-8.2)
[2020-08-03 18:14] LABS: Troponin I < 4.0 ng/L (0.00-60.4)
[2020-08-03] MEDS: SODIUM CHLORIDE 0.9% IV 1,000 ML 999 ML IV CONT (18:33)
[2020-08-03 19:01] LABS: Appearance Urine Clear (Clear); Bilirubin Urine Negative (Negative); Color Urine Yellow (Yellow); Glucose Urine UA Negative (Negative); Ketones Urine Negative (Negative); Leukocyte Esterase Ur Negative LEU/UL (Negative); Nitrate Urine Negative (Negative); Protein Urine Negative (Negative); Specific Grav Ur >= 1.030 (1.010-1.020); Urobilinogen Urine 0.2 mg/dL (0.2-1.0); pH Urine 5.5 (5.0-8.0)
[2020-08-03 19:07] LABS: Add Urine Microscopic? YES; Bacteria Urine Trace /hpf; Blood Urine Trace (Negative); RBC Urine 0-2 /hpf (0-2); Squamous Epithelial Cell Urine Rare /hpf (Few); WBC Urine 0-3 /hpf (0-3)
[2020-08-03] MEDS: NITROGLYCERIN SL 0.4 MG TABLET SUBLINGUAL (19:25)
--- NOTE | 2020-08-03 19:27 | PC.NURSE ---
1725 2 L NC PLACED ON PATIENT PER CHEST PAIN PROTOCOL
--- NOTE | 2020-08-03 19:28 | ED.CHESTPAIN ---
HPI - Chest Pain General Chief Complaint: Chest Pain Stated Complaint: chest pain,trouble breathing, pain in left arm Source: patient Mode of arrival: ambulatory History of Present Illness HPI narrative: this is a 60-year-old gentleman with a history of coronary artery disease with stents and significant peripheral vascular disease presents with some chest pain left-sided had more intense pain earlier this afternoon currently his pain level is about a 2 and currently during assessment 0 pain level, the patient currently took a nitroglycerin earlier prior to arrival has some mild shortness of breath currently no shortness of breath no nausea vomiting no diaphoresis. The patient is a smoker and continues to smoke and is a social drinker a denies having any abdominal pain no fever chills no nausea vomiting no diarrhea or constipation. MD complaint: chest pain Pertinent past history: coronary artery disease Onset (ago): hour(s) Timing of current episode: episodic Prior episodes: Yes Onset: during rest Pain location: substernal Pain radiation: none Severity: moderate Quality: tightness Relieving factors: nitroglycerin Related Data Home Medications Medication Instructions Recorded Confirmed amlodipine 5 mg PO DAILY 06/16/19 08/03/20 atorvastatin 20 mg PO DAILY 06/16/19 08/03/20 warfarin 5 mg PO DAILY 01/18/20 08/03/20 Allergies Allergy/AdvReac Type Severity Reaction Status Date / Time No Known Allergies Allergy Verified 06/16/19 11:42 Review of Systems Review of Systems: All systems reviewed & are unremarkable except as noted in HPI and below PMFSH Past Medical History Medical History DVT (deep venous thrombosis) Dyslipidemia Fracture of L1 vertebra Hypertension Peripheral vascular disease Surgical History Surgical History History of hip surgery left, iliotibial band S/P femoral-femoral bypass surgery Family History Family History Mother Family history of neuropathy Family history of primary malignant neoplasm of liver Patient's mother is Sibling Patient's brother is in good health Family history of malignant neoplasm of brain Patient's brother is Father Carcinoma of colon Patient's father is Social History Social History Smoking status: Current every day smoker Alcohol intake: never Gender identity (if verbalized by the patient): Male Exam Const: General: cooperative, no acute distress and well developed HENMT: Head: normal to inspection Mouth: Yes Normal oral and palatal mucosa present Eyes: General: appearance normal, both eyes and all related structures Eyelids: eyelids normal Conjunctivae: conjunctivae normal Sclera: sclerae normal Neck: Neck: normal visual inspection, full ROM, no lymphadenopathy and no meningeal signs Chest: Chest palpation & inspection: normal inspection of the chest and normal palpation of entire chest wall Resp: Effort & Inspection: normal respiratory effort and able to speak in complete sentences Auscultation: clear to auscultation bilaterally Cardio: Jugular venous distension: no JVD Palpation: normal PMI Rate: regular rate Rhythm: regular rhythm Heart sounds: S1 normal heart sound present and S2 normal heart sound present Bruits: Abdominal aortic bruit present GI: Inspection: normal to inspection Percussion: Yes normal to percussion : General: Yes CVA tenderness Back/Spine/Pelvis: Cervical Spine: normal cervical lordosis Skin: General skin exam: normal color and no rashes or lesions noted Psych: Appearance: grossly normal and well kempt Mental Status: mental status grossly normal Course Course Emergency Course: Reviewed labs and CT findings with patient
[2020-08-03 19:35] VITALS: PULSE 54; RESP 20; O2SAT 91
--- NOTE | 2020-08-03 19:37 | PC.NURSE ---
1928 rn requested obs room. 1934 tre rn provides room 203B. registration notified
[2020-08-03] MEDS: ASPIRIN 81 MG CHEWABLE TABLET 324 MG PO (19:57)
[2020-08-03 20:38] VITALS: BP 158/90; PULSE 71; RESP 21; O2SAT 99
[2020-08-03 21:35] LABS: Troponin I 4.4 ng/L (0.00-60.4)
--- NOTE | 2020-08-03 21:51 | PC.NURSE ---
Patient admitted to room 103 b per w/c. Patient is alert and oriented x 4 with no c/o pain, oriented to room and call light, voices understanding.
[2020-08-03] MEDS: SODIUM CHLORIDE 0.9% IV 1,000 ML 100 ML IV CONT (22:06)
[2020-08-04] VITALS: BP 173/95; PULSE 54; PULSE 59; RESP 18; TEMP 36.2; O2SAT 91
[2020-08-04 02:53] LABS: Troponin I 4.9 ng/L (0.00-60.4)
[2020-08-04 04:00] VITALS: BP 177/92; PULSE 53; PULSE 59; RESP 18; TEMP 36; O2SAT 98
[2020-08-04 05:47] LABS: Basophils Absolute Auto 0.12 K/mm3 (0.00-0.10); Basophils Percent Auto 1.4 % (0.0-1.0); Eosinophils Absolute Auto 0.39 K/mm3 (0.02-0.50); Eosinophils Percent Auto 4.7 % (1.0-6.0); Hematocrit 43.2 % (40.0-54.0); Hemoglobin 14.9 g/dL (14.0-18.0); Immature Granulocyte Absolute 0.04 K/mm3 (0.00-0.00); Immature Granulocyte Percent A 0.5 % (0.0-0.0); Lymphocytes Percent Auto 35.8 % (18.0-42.0); Mean Corpuscular HGB Conc 34.5 g/dL (32.0-36.0); Mean Corpuscular Hemoglobin 32.3 pg (27.0-31.0); Mean Corpuscular Volume 93.5 fL (78.0-102.0); Mean Platelet Volume 10.1 fl (8.7-11.0); Monocytes Absolute Auto 0.73 K/mm3 (0.10-0.90); Monocytes Percent Auto 8.7 % (2.0-11.0); Neutrophils Absolute Auto 4.1 K/mm3 (1.7-7.2); Neutrophils Percent Auto 48.9 % (50.0-70.0); Platelet Count Result 233 K/mm3 (150-420); Red Blood Count 4.62 M/mm3 (4.70-6.10); Red Cell Distribution Width 11.9 % (11.6-14.4); White Blood Count 8.4 K/mm3 (4.8-10.8)
[2020-08-04 05:56] LABS: Prothrombin Time 10.3 Seconds (9.50-12.10)
[2020-08-04 06:02] LABS: Alanine Aminotransferase 33 U/L (16-63); Albumin Level 3.1 g/dL (3.4-5.0); Alkaline Phosphatase 73 U/L (46-116); Anion Gap 10 mmol/L (8-16); Aspartate Amino Transferase 15 U/L (15-37); Bilirubin,Total 0.2 mg/dL (0.00-1.00); Blood Urea Nitrogen 13 mg/dL (7-18); Calcium 7.7 mg/dL (8.5-10.1); Carbon Dioxide 25 mmol/L (21-32); Chloride 107 mmol/L (98-108); Estimated CRCL calculation 78 ml/min; Estimated Glomerular Filt Rate > 60; Glucose 121 mg/dL (70-99); Osmolality Calculated 295 mOsm/kg (285-295); Potassium 3.3 mmol/L (3.5-5.1); Sodium 142 mmol/L (136-145); Total Protein 6.3 g/dL (6.4-8.2)
[2020-08-04 06:11] LABS: Lipase 165 U/L (73-393)
[2020-08-04 08:00] VITALS: BP 189/85; PULSE 58; RESP 20; TEMP 36.8; O2SAT 97
[2020-08-04] MEDS: ASPIRIN 81 MG ENTERIC TABLET PO (08:57)
[2020-08-04] MEDS: ISOSORBIDE MONONITRATE 30 MG TAB.ER.24H PO (08:57)
[2020-08-04] MEDS: ATORVASTATIN 10 MG TABLET 20 MG PO (08:57)
[2020-08-04] MEDS: amLODIPine BESYLATE 5 MG TABLET PO (08:58)
[2020-08-04 09:29] LABS: NT Pro B Type Natriuretic Pept 68 pg/mL (0-125)
[2020-08-04 09:46] LABS: Troponin I 4.5 ng/L (0.00-60.4)
[2020-08-04] MEDS: POTASSIUM CHLORIDE 20 MEQ TABLET 40 MEQ PO (10:12)
--- NOTE | 2020-08-04 10:30 | PM.SD2 ---
Same Day Admit/Disch: HPI History of Present Illness Chief complaint: chest pain Narrative: Maurice Israel is a 60 year old male that presented to our ED with complaints of chest pains, trouble breathing and pain to his left arm. Patient has a past medical history of DVT, dyslipidemia, fracture of L1 vertebrae, hypertension and PVD. According to patient yesterday he does develop pain to his left shoulder then later migrated to his right shoulder and then caused chest pains with nausea. At that time patient's girlfriend made him come to our ED. according to patient he has had several episodes of chest pain with what brought him the most this time is to nausea and vomiting. Back in March 2020 patient experienced chest pain at that time and was given nitro and diagnosed with angina and instructed to follow-up with his primary care physician in a real estate listing consultant. Patient did not follow-up with his primary care physician or real estate listing consultant patient does have an extensive history of CAD. On admission patient's WBCs were 11.0 hemoglobin 16.1, hematocrit 47, platelets 257, D-dimer 1.30, sodium 141, potassium 3.3, BUN 14, creatinine 0.95, glucose 136 troponin negative x4, lipase 753, EKG sinus rhythm. Patient admitted to rule out MD. Patient has not experienced any more chest pain since his admission. The patient denies SOB, CP, palpitation, extremity numbness, lightheadedness, dizziness, constipation, diarrhea, chills, or fever. Patient is being discharged with a referral to her real estate listing consultant to follow-up. The importance of following up to a real estate listing consultant was emphasized to the patient. Patient agrees to follow-up. Contacted Dr. Cornelius office to inform him of patient's condition and diagnosis. [facility] Past Medical History Medical History DVT (deep venous thrombosis) Dyslipidemia Fracture of L1 vertebra Hypertension Peripheral vascular disease Surgical History Surgical History History of hip surgery left, iliotibial band S/P femoral-femoral bypass surgery Family History Family History Mother Family history of neuropathy Family history of primary malignant neoplasm of liver Patient's mother is Sibling Patient's brother is in good health Family history of malignant neoplasm of brain Patient's brother is Father Carcinoma of colon Patient's father is Social History Social History Smoking status: Current every day smoker Tobacco type: cigarettes Alcohol intake: unknown Substance use type: marijuana Gender identity (if verbalized by the patient): Male Spiritual care concerns: No Same Day Admit/Disch: Med Pre-admit Medications Home Medications Medication Instructions Recorded Confirmed Type atorvastatin 20 mg PO DAILY 06/16/19 08/03/20 History warfarin 5 mg PO DAILY 01/18/20 08/03/20 History nitroglycerin 0.4 mg SUBLINGUAL Q5M PRN #1 03/22/20 08/03/20 Rx tablet MDD may repeat x1 amlodipine [Norvasc] 5 mg PO DAILY #30 tablet 08/04/20 Rx isosorbide mononitrate 30 mg PO QAM #30 tablet 08/04/20 Rx Exam Narrative: Exam Narrative: GENERAL: This is a well-nourished, well-developed patient, in no apparent distress. HEAD: normocephalic, atraumatic. EYES: PERRL. Sclera clear/white. Vision is grossly intact. EARS: External ears normal, auditory canals clear and without drainage, TMs normal without perforation. Hearing grossly intact. NOSE: External nose normal with no obvious nasal discharge, nares without redness, no rhinorrhea. THROAT: Mucous membranes moist, posterior pharynx clear. NECK: Neck supple, non-tender without lymphadenopathy, masses or thyromegaly. CARDIOVASCULAR: Regular rate and rhythm without murmurs, gallops, or rubs. RESPIRATOR
[2020-08-04] MEDS: ACETAMINOPHEN 325 MG TABLET 650 MG PO (11:17)
--- NOTE | 2020-08-04 13:00 | PC.NURSE ---
1225 rounds were made and patient has denied cp all morning. up ad ammy in room. sb-sr on tele. dc instructions went over vocalizes an understanding. girlfriend by his side. left floor walking to his personal car. did not nurse to go with him.
--- NOTE | 2020-08-08 10:44 | PC.NURSE ---
Unable to reach for discharge call back.
== END 2020-08-04 12:25 | disposition home or self-care (01) ==
LOC: CHSED 19:33 → CHS2ND 19:42
PROVIDERS: Nurse Practitioner; Admitting Provider Emergency Medicine; Emergency Provider Emergency Medicine; PCP Internal Medicine; Visit Provider Emergency Medicine
DX: I25.119 Atherosclerotic heart disease of native coronary artery with unspecified angina pectoris (principal); I73.9 Peripheral vascular disease, unspecified; I10 Essential (primary) hypertension; E78.5 Hyperlipidemia, unspecified; F17.200 Nicotine dependence, unspecified, uncomplicated; Z86.718 Personal history of other venous thrombosis and embolism; Z95.5 Presence of coronary angioplasty implant and graft; Z79.01 Long term (current) use of anticoagulants
CPT/HCPCS: 36415; 71045; 71275; 80053; 81001; 83690; 83880; 84484; 85025; 85380; 85610; 87040; 93005; 96360; 96361; 99285; A9270; G0378; G0379; J7030; Q9967

== ENCOUNTER 2022-01-14 13:45 | Emergency (ER) | payer OTHER, SELFPAY ==
[2022-01-14] VITALS (63 sets, daily range): BP systolic 125–214; BP diastolic 63–115; PULSE 50–84; RESP 8–35; TEMP 36.6; O2SAT 94–100
--- NOTE | ~2022-01-14 | CT_ITS ---
EXAMINATION: CTA brain carotid DATE: 01/14/2022 15:12 INDICATION: Right facial weakness. TECHNIQUE: Computed tomographic angiography (CTA) of the head was performed with 100 mL Omnipaque-350 intravenous contrast. CTA of the neck was performed with intravenous contrast. Automated exposure co ntrol and iterative reconstruction technique were employed. The dose-length product was 1166.19 mGy-c m. Maximum intensity projection and volume rendered 3D-reconstructions were created by the technologi st on a separate workstation. COMPARISON: Head CT 01/14/2022 FINDINGS: HEAD CTA: There are scattered areas of low attenuation in the cerebral white matter. There is no intr acranial hemorrhage, acute infarction, or abnormal intracranial mass lesion. The ventricles are kenya l in size. There is mucosal thickening in the paranasal sinuses. The mastoid air cells are normal. Ve rtebral body heights are normal. There is extensive dental disease. The vertebral arteries are codomi nant. There is no significant stenosis of basilar artery or the posterior cerebral arteries. The post erior communicating arteries are normal. There is mild stenosis of the intracranial internal carotid arteries. There is no significant stenosis of the anterior cerebral arteries or middle cerebral arter ies. Anterior communicating artery is normal. There is no aneurysm. NECK CTA: The lungs demonstrate mild atelectasis. There is a 10 mm nodule in right thyroid lobe, like ly not clinically significant. There are no pathologically enlarged lymph nodes. There is no signific ant stenosis of the vertebral arteries. There is plaque in the proximal internal carotid arteries. Th ere is 0% stenosis of the proximal right internal carotid artery relative to normal distal artery lum en diameter (NASCET criteria). There is 0% stenosis of the proximal left internal carotid artery rela tive to normal distal artery lumen diameter. There is mild cervical spondylosis. IMPRESSION: 1. Moderate nonspecific cerebral white matter disease, which likely represents chronic small vessel i schemic disease. 2. No aneurysm or significant intracranial arterial stenosis. 3. 0% stenosis of the proximal internal carotid arteries relative to normal distal artery lumen diam eters (NASCET criteria). Reviewed, dictated and finalized at location A. IMPRESSION: 1. Moderate nonspecific cerebral white matter disease, which likely represents chronic small vessel ischemic disease. 2. No aneurysm or significant intracranial arterial stenosis. 3. 0% stenosis of the proximal internal carotid arteries relative to normal di stal artery lumen diameters (NASCET criteria).
--- NOTE | ~2022-01-14 | CT_ITS ---
EXAMINATION: CT brain wo con DATE: 01/14/2022 13:59 INDICATION: Right facial weakness. Right hemiparesis. TECHNIQUE: Computed tomography (CT) of the head was performed without intravenous contrast. The mA wa s adjusted according to patient size. Iterative reconstruction technique was employed. The dose-lengt h product was 605.33 mGy-cm. COMPARISON: Head CT 01/18/2020 FINDINGS: There are scattered areas of low attenuation in the cerebral white matter. There is no intr acranial hemorrhage, acute infarction, or abnormal intracranial mass lesion. The orbits are normal. T he mastoid air cells are normal. There is mild mucosal thickening in the paranasal sinuses. IMPRESSION: 1. Moderate nonspecific cerebral white matter disease, which likely represents chronic small vessel i schemic disease. 2. I discussed this case with Dr. Pete. Reviewed, dictated and finalized at location A. IMPRESSION: 1. Moderate nonspecific cerebral white matter disease, which likely represents chronic small vessel ischemic disease. 2. I discussed this case with Dr. Pete.
--- NOTE | ~2022-01-14 | XR_ITS ---
EXAMINATION: XR chest 1V portable DATE: 01/14/2022 13:58 INDICATION: Shortness of breath TECHNIQUE: frontal view of the chest was obtained. COMPARISON: Chest radiograph dated 08/03/2020 FINDINGS: The lungs remain clear with no focal airspace opacities, pulmonary edema, pleural effusion or pneumot horax. The cardiomediastinal silhouette is normal. Cholecystectomy clips the gallbladder fossa. Patie nt is rotated slightly towards the left. IMPRESSION: 1. No acute cardiopulmonary disease. Reviewed, dictated and finalized at location B.
--- NOTE | 2022-01-14 13:47 | ECG_ITS ---
Measurements Intervals [place] Rate: 65 P: 25 CT: 143 QRS: -74 QRSD: 85 T: 49 QT: 395 QTc: 411 Interpretive Statements SINUS RHYTHM LEFT AXIS DEVIATION POOR R WAVE PROGRESSION, ANTERIOR LEADS VOLTAGE CRITERIA FOR LVH INFERIOR INFARCT, AGE INDETERMINATE ABNORMAL ECG COMPARED TO ECG 08/03/2020 17:31:46 NO SIGNIFICANT CHANGES Electronically Signed On 01-15-2022 6:41:36 CDT by Fox Edwards D.O.
[2022-01-14 13:57] LABS: Glucose Point of Care 102 mg/dl (65-105)
[2022-01-14 13:58] LABS: Basophils Absolute Auto 0.14 K/mm3 (0.00-0.10); Basophils Percent Auto 1.3 % (0.0-1.0); Eosinophils Absolute Auto 0.35 K/mm3 (0.02-0.50); Eosinophils Percent Auto 3.3 % (1.0-6.0); Hematocrit 49.3 % (40.0-54.0); Hemoglobin 17.1 g/dL (14.0-18.0); Immature Granulocyte Absolute 0.06 K/mm3 (0.00-0.00); Immature Granulocyte Percent A 0.6 % (0.0-0.0); Lymphocytes Absolute Auto 2.84 K/mm3 (1.10-4.50); Lymphocytes Percent Auto 26.5 % (18.0-42.0); Mean Corpuscular HGB Conc 34.7 g/dL (32.0-36.0); Mean Corpuscular Hemoglobin 32.1 pg (27.0-31.0); Mean Corpuscular Volume 92.7 fL (78.0-102.0); Mean Platelet Volume 9.3 fl (8.7-11.0); Monocytes Absolute Auto 1.02 K/mm3 (0.10-0.90); Monocytes Percent Auto 9.5 % (2.0-11.0); Neutrophils Absolute Auto 6.3 K/mm3 (1.7-7.2); Neutrophils Percent Auto 58.8 % (50.0-70.0); Platelet Count Result 260 K/mm3 (150-420); Red Blood Count 5.32 M/mm3 (4.70-6.10); Red Cell Distribution Width 11.9 % (11.6-14.4); White Blood Count 10.7 K/mm3 (4.8-10.8)
[2022-01-14 14:14] LABS: INR 1.1; Partial Thromboplastin Time 36.8 SEC (23.90-30.70); Prothrombin Time 12.4 Seconds (9.50-12.10)
[2022-01-14 14:18] LABS: Alanine Aminotransferase 35 U/L (16-63); Albumin Level 3.8 g/dL (3.4-5.0); Alkaline Phosphatase 72 U/L (46-116); Anion Gap 9 mmol/L (8-16); Aspartate Amino Transferase 21 U/L (15-37); Bilirubin,Total 0.3 mg/dL (0.00-1.00); Blood Urea Nitrogen 17 mg/dL (7-18); Calcium 8.6 mg/dL (8.5-10.1); Carbon Dioxide 27 mmol/L (21-32); Chloride 105 mmol/L (98-108); Estimated Glomerular Filt Rate > 60; Glucose 97 mg/dL (70-99); Osmolality Calculated 293 mOsm/kg (285-295); Sodium 141 mmol/L (136-145); Troponin I 6.1 ng/L (0.00-60.4)
[2022-01-14 14:22] LABS: Lactic Acid Reflex 1.3 mmol/L (0.4-2.0)
[2022-01-14] MEDS: METOPROLOL TARTRATE INJ 5 MG/5 ML VIAL 2.5 MG IV PUSH ×2 (14:33→15:08)
[2022-01-14] MEDS: SODIUM CHLORIDE 0.9% IV 500 ML 999 ML IV CONT (14:34)
--- NOTE | 2022-01-14 16:02 | PC.NURSE ---
1400 ERP NOTIFIED OF PT BP WHEN RETURNED FROM CT. NO ORDERS AT THIS TIME. ERP ORDERS ASA, NO CT RESULTS OF YET, THIS RN HELD DUE TO NO CT RESULTS AND PT HAVING FACIAL DROOP, FAILS DYSPHAGIA SCREEN AT THIS TIME. ERP IS AWARE. 1430 ERP IS NOTIFIED OF CONTINUING HTN, MEDICATION ORDERED AT THIS TIME. PT CONTINUES TO REPORT RT HAND NOT DOING WHAT HE WANTS, FACIAL DROOP TO RT SIDE REMAINS. PT DENIES ANY OTHER NEEDS OR COMPLAINTS. WILL CONTINUE TO MONITOR. [address] AT THIS TIME. PT IS TEXTING SIG OTHER, NO CHANGE IN STATUS. WILL CONTINUE TO MONITOR. PT REMAINS HTN, ERP NOTIFIED, MORE MEDICATION TO BE ADMINISTERED. WILL CONTINUE TO MONITOR. 1530 PT IS TEXTING ON CELL, NO CHANGE IN STATUS. PT IS AWAITING CT RESULTS. WILL CONTINUE TO MONITOR. 1600 NO CHANGE IN PT STATUS, AWAITING ERP TO NOTIFY DR SHANKAR OF [facility] DECISION. WILL CONTINUE TO MONITOR.
--- NOTE | 2022-01-14 16:21 | PC.NURSE ---
PT IS RESTING ON STRETCHER AT THIS TIME. PT WAS ABLE TO USE URINAL WITHOUT DIFFICULTY. PT IS AWAITING RETURN CALL FROM DR SHANKAR AT THIS TIME. WILL CONTINUE TO MONITOR.
[2022-01-14 16:28] LABS: Appearance Urine Clear (Clear); Bilirubin Urine Negative (Negative); Glucose Urine UA Negative (Negative); Ketones Urine Negative (Negative); Leukocyte Esterase Ur Negative (Negative); Nitrate Urine Negative (Negative); Protein Urine Negative (Negative); Specific Grav Ur <= 1.005 (1.010-1.020); Urobilinogen Urine 0.2 mg/dL (0.2-1.0)
[2022-01-14 16:33] LABS: Add Urine Microscopic? YES; Bacteria Urine None seen /hpf; Blood Urine Trace-Intact (Negative); Color Urine Light Yellow (Yellow); RBC Urine 0-2 /hpf (0-2); Squamous Epithelial Cell Urine Rare /hpf (Few); WBC Urine None seen /hpf (0-3)
--- NOTE | 2022-01-14 17:05 | PC.NURSE ---
NO CHANGE IN PT STATUS. PT IS RESTING ON STRETCHER IN EXAM ROOM WITHOUT DISTRESS. PT DENIES ANY NEEDS OR COMPLAINTS. DECLINES ANY MORE BLANKETS. LIGHTS ARE OFF. CALL LIGHT IN REACH. WILL CONTINUE TO MONITOR. PT IS UPDATED ON STATUS.
--- NOTE | 2022-01-14 17:38 | PC.NURSE ---
PT IS ABLE TO SIGN BELONGINGS LIST WITHOUT DIFFICULTY, REPORTS HIS HAND IS GETTING BETTER. PT IS AWARE OF PLAN OF CARE. FACIAL DROOP REMAINS ON THE RT SIDE. WILL CONTINUE TO MONITOR.
--- NOTE | 2022-01-14 18:30 | PC.NURSE ---
PT IS UPSET, HE WANTS TO EAT. EXPLAINED THAT HE NEEDED TO BE EVALUATED BY SPEECH DUE TO POSSIBLE ASPIRATION RISK, HIS FACIAL DROOP CONTINUES. SIG OTHER EN ROUTE TO ED AT THIS TIME.PT IS BECOMING HYPERTENSIVE, ERP IS AWARE, NO ORDERS AT THIS TIME. PT REPORTS HE IS UPSET BECAUSE HE IS HUNGRY. PT CONTINUES TO AWAIT BED AT [facility]. WILL CONTINUE TO MONITOR.
--- NOTE | 2022-01-14 19:15 | PC.NURSE ---
Addendum entered by Krista Trinidad RN 01/14/22 19:30: Noted Rt sided facial droop remains. Original Note: Report received, pt. resting in bed upon this skull splitter, noted elevated BP at 180/95, pt is somewhat agitated when speaking to him, Lt sided facial droop remains. He states he is frustrated and wants to eat and doesn't know why it is taking so long to transfer to get another bed at [facility]. Explained to pt. by this RN and Dr Pete about reason for NPO due to his sxs but he still remains agitated. Informed pt we will try to call again to find out about wait time.
--- NOTE | 2022-01-14 19:33 | PC.NURSE ---
Pts S.O. is here and at bedside speaking c pt. Explained POC again and need for transfer and NPO status, s.o. stated understanding. Pt still frustrated and states he is hungry and that's why my BP keeps going up . BP is 194/102. ERP Dr Pete aware, no new orders and POC is to continue to observe until bed is arranged at [facility].
--- NOTE | 2022-01-14 19:38 | PC.NURSE ---
Call placed to [facility], spoke to nargis Garcia. and no bed available at this time. Informed pt. and updated ERP, pt and his s.o. wish to try [facility] or [facility] in [place] for possible transfer to neuro.
--- NOTE | 2022-01-14 19:50 | PC.NURSE ---
Call placed to [facility] and spoke to Flo, will await call back from Neuro or hospitalist.
--- NOTE | 2022-01-14 19:55 | PC.NURSE ---
Dr Pete ok'd ice chips at this time for pt. Pt given ice chips and tolerates well, states he has no problem or difficulty swallowing and denies any numbness/tingling to his face, only c/o is Rt hand weakness and feeling like he can't use his cell phone properly to do what I want it to do.
--- NOTE | 2022-01-14 19:56 | ED.NEUROSD ---
HPI - Neuro Symptoms/Deficit General Chief Complaint: Neuro Symptoms/Deficit <Kameron Pete MD - Last Filed: 01/26/22 07:52> Stated Complaint: NEURO <Kameron Pete MD - Last Filed: 01/26/22 07:52> Time Seen by Provider: 01/14/22 13:47 <Kameron Pete MD - Last Filed: 01/26/22 07:52> Source: patient, EMS and RN notes reviewed <Kameron Pete MD - Last Filed: 01/26/22 07:52> Mode of arrival: EMS <Kameron Pete MD - Last Filed: 01/26/22 07:52> Limitations: no limitations <Kameron Pete MD - Last Filed: 01/26/22 07:52> History of Present Illness Onset (ago): hour(s) (5) <Kameron Pete MD - Last Filed: 01/26/22 07:52> Time: 09:00 <Kameron Pete MD - Last Filed: 01/26/22 07:52> Location: speech (slurred), right face (droop) and right arm (unable to grasp anything or text on his phone with the right hand, improved in the ED) <Kameron Pete MD - Last Filed: 01/26/22 07:52> History of same: No <Kameron Pete MD - Last Filed: 01/26/22 07:52> Severity: mild <Kameron Pete MD - Last Filed: 01/26/22 07:52> Quality: improving <Kameron Pete MD - Last Filed: 01/26/22 07:52> Relieving factors: none <Kameron Pete MD - Last Filed: 01/26/22 07:52> Exacerbating factors: none <Kameron Pete MD - Last Filed: 01/26/22 07:52> Context: sudden onset <Kameron Pete MD - Last Filed: 01/26/22 07:52> On Anticoagulants: Yes (has not been taking, noR antihypertensive Rx.) <Kameron Pete MD - Last Filed: 01/26/22 07:52> Treatments Prior to Arrival: Aspirin <Kameron Pete MD - Last Filed: 01/26/22 07:52> Related Data Home Medications: Home Medications Medication Instructions Recorded Confirmed ramipril 10 mg capsule 10 mg PO DAILY 01/14/22 01/16/22 rivaroxaban 20 mg tablet (Xarelto) 20 mg PO DAILY 01/14/22 01/16/22 <Kameron Pete MD - Last Filed: 01/26/22 07:52> Allergies/Adverse Reactions: Allergies Allergy/AdvReac Type Severity Reaction Status Date / Time No Known Allergies Allergy Verified 01/16/22 20:00 <Kameron Pete MD - Last Filed: 01/26/22 07:52> Review of Systems Review of Systems: All systems reviewed & are unremarkable except as noted in HPI and below <Kameron Pete MD - Last Filed: 01/26/22 07:52> Constitutional: Constitutional: Reports no additional constitutional complaints <Kameron Pete MD - Last Filed: 01/26/22 07:52> Eyes: Eyes: Reports no additional eye complaints <Kameron Pete MD - Last Filed: 01/26/22 07:52> ENT: Reports system reviewed and no additional complaints, except as documented <Kameron Pete MD - Last Filed: 01/26/22 07:52> Cardiovascular: Cardiovascular: Reports no additional cardiovascular complaints <Kameron Pete MD - Last Filed: 01/26/22 07:52> Respiratory: Respiratory: Reports no additional respiratory complaints <Kameron Pete MD - Last Filed: 01/26/22 07:52> Gastrointestinal: Gastrointestinal: Reports no additional gastrointestinal complaints <Kameron Pete MD - Last Filed: 01/26/22 07:52> Musculoskeletal: Musculoskeletal: Reports no additional musculoskeletal complaints <Kameron Pete MD - Last Filed: 01/26/22 07:52> Integumentary/Breasts: Skin/Breast: Reports system reviewed and no additional complaints, except as docu <Kameron Pete MD - Last Filed: 01/26/22 07:52> Neurologic: Reports system reviewed and no additional complaints, except as documented <Kameron Pete MD - Last Filed: 01/26/22 07:52> Comments: Right facial droop and improving slurred speech. <Kameron Pete MD - Last Filed: 01/26/22 07:52> Psychiatric: Psychiatric: Reports no additional psychiatric complaints <Kameron Pete MD - Last Filed: 01/26/22 07:52> Endocrine: Endocrine: Reports no additional endocrine complaints <Kameron Pete
--- NOTE | 2022-01-14 20:21 | PC.NURSE ---
Call back from Dr Gordon, neurologist at [facility], he spoke to Dr Pete, declined for transfer and acceptance a this time, no beds available....call then placed to [facility] for possible transfer to neuro, no beds available at this facility as well. DR Pete informed.
--- NOTE | 2022-01-14 20:42 | PC.NURSE ---
Pt and s.o. informed on POC for ER Hold until beds available at [place]. Pt agreeable to staying at this time to be monitored. Pt moved to Rm 4 and given more ice chips and watching tv. Monitor shows S-alice, BP at 181/98. No further c/o or needs at this time.
--- NOTE | 2022-01-14 21:30 | PC.NURSE ---
Pt resting, no c/o call gutierrez at side.
--- NOTE | 2022-01-14 23:18 | PC.NURSE ---
Pt sleeping, RR even and nonlabored, VSS at this time, call gutierrez in pt reach.
--- NOTE | 2022-01-14 23:45 | PC.NURSE ---
Pt resting, uses urinal per self s difficulty, VSS and monitor shows S-Zhao. Pt has no c/o at this time.
[2022-01-15] VITALS (65 sets, daily range): BP systolic 138–192; BP diastolic 72–112; PULSE 50–86; RESP 10–28; TEMP 36.4–36.7; O2SAT 94–100
--- NOTE | 2022-01-15 01:03 | PC.NURSE ---
Call back from nargis Mayfield Supv at [facility], update given, still on wait list for bed placement, no beds as of yet. Pt sleeping, VSS.
--- NOTE | 2022-01-15 01:30 | PC.NURSE ---
Order from Dr Pete for ED Hold until bed placement for transfer. Pt remains asleep but easily awakens, neuro checks WNL, VSS and monitor showing SBrady. No changes, pt has call gutierrez at side.
[2022-01-15] MEDS: SODIUM CHLORIDE 0.9% IV 1,000 ML 100 ML IV CONT (01:33)
--- NOTE | 2022-01-15 03:00 | PC.NURSE ---
Pt sleeping, no changes, RR even and nonlabored, VSS.
--- NOTE | 2022-01-15 05:00 | PC.NURSE ---
Pt remains asleep, but is arousable to voice, neuro checks completed and all WNL, VSS. Call gutierrez at pt. side.
--- NOTE | 2022-01-15 05:43 | PC.NURSE ---
Call from [facility] for checkup on pt. No beds yet, will keep informed when bed is available.
--- NOTE | 2022-01-15 06:07 | PC.NURSE ---
Pt awake and sitting up in bed watching TV, c/o back hurting lying in bed, pt repositioning himself and aware of possible transfer to [facility] when beds available today. Pt is cooperative c care and all neuro checks are WNL. Pt given more ice chips per request and tolerates well, has no difficulty swallowing. VSS.
--- NOTE | 2022-01-15 07:08 | PC.NURSE ---
Pt watching TV, VSS at this time, Report given to MADDIE Youngblood
--- NOTE | 2022-01-15 08:06 | PC.NURSE ---
spoke with Jenna from speech therapy, she will be down to see pt this am. pt continues to rest without difficulty. will continue to monitor.
--- NOTE | 2022-01-15 08:39 | PC.NURSE ---
pt is awake, updated on status and plan of care. pt is agreeable at this time to plan of care. medications ordered, held until cleared by speech therapy. will continue to monitor. pt denies any needs or complaints, is requesting something to eat and is aware that if he is cleared by speech therapy he will be able to eat at that time. pt reports that his rt hand has greatly improved, however is not back to normal as of yet, rt facial droop has improved, however does remain. will continue to monitor.
--- NOTE | 2022-01-15 09:07 | PC.NURSE ---
speech therapy at bedside.
[2022-01-15] MEDS: RIVAROXABAN 10 MG TABLET 20 MG PO (09:47)
--- NOTE | 2022-01-15 09:53 | PC.NURSE ---
pt tolerated medication without difficulty, breakfast tray provided. sig other has arrived and is at bedside. nad noted. pt denies any complaints. will continue to monitor.
--- NOTE | 2022-01-15 09:58 | PC.NURSE ---
Meal provided to patient
--- NOTE | 2022-01-15 10:06 | PC.NURSE ---
THE [facility] EVALUATION WAS A MISTAKEN ENTRY PER DR SAENZ. HE REQUESTED IT TO REMOVE IT AND TO DC THE ORDER, HOWEVER [facility] IS OUT OF THE OFFICE FOR THE NEXT FEW DAYS, THIS RN DC THE ORDER.
--- NOTE | 2022-01-15 10:08 | PC.NURSE ---
DUPLICATE ORDERS ARE BEING CANCELED BY THIS RN DUE TO IT OUT OF OFFICE.
--- NOTE | 2022-01-15 11:40 | PC.NURSE ---
PT IS WATCHING TV WITHOUT DISTRESS, DENIES ANY NEEDS OR COMPLAINTS. NO CHANGE IN PT STATUS. URINAL EMPTIED. WILL CONTINUE TO MONITOR. PT BP HAS IMPROVED POST MEDICATION.
--- NOTE | 2022-01-15 12:10 | PC.NURSE ---
LUNCH TRAY PROVIDED
--- NOTE | 2022-01-15 13:32 | PC.NURSE ---
PT ATE LUNCH WITHOUT DIFFICULTY, IS LYING ON STRETCHER WATCHING TV CONTINUING TO AWAIT ROOM ASSIGNMENT AT [facility]. WILL CONTINUE TO MONITOR.
--- NOTE | 2022-01-15 15:16 | PC.NURSE ---
PT WAS NAPPING UPON REASSESSMENT, DENIES ANY NEEDS OR COMPLAINTS. HOSPITAL BED WAS OFFERED TO PT, HE DECLINED. NAD NOTED. NO CHANGE IN PT STATUS. WILL CONTINUE TO MONITOR.
--- NOTE | 2022-01-15 16:17 | PC.NURSE ---
SIG OTHER HAS RETURNED. SPOKE WITH YASIR AT [facility], WHO REPORTS SHE IS STILL ATTEMPTING TO GET PT A ROOM. ERP IS REQUESTING TO CALL OTHER FACILITIES AT THIS TIME, PT IS AGREEABLE. WILL CONTINUE TO MONITOR.
--- NOTE | 2022-01-15 17:25 | PC.NURSE ---
1700 PT AND SIG OTHER STATE THEY DO NOT WANT TO WAIT ANY LONGER, REPORT THAT THEY WOULD LIKE TO SIGN OUT AMA AND GO TO [place] ON THEIR OWN. ERP IS NOTIFIED. WITH SIG OTHER, RN, ERP, AND PT THERE WAS A DISCUSSION ABOUT WAITING FOR TRANSFER, THE BENEFITS AND RISKS OF TRANSFER VS AMA. PT AND SIG OTHER VERBALIZED UNDERSTANDING OF WORSENING CONDITION UP TO AND INCLUDING STROKE, PERMANENT PARALYSIS, . PT FACIAL DROOP HAS IMPROVED, MINOR RESIDUAL DROOP NOTED. PT BP 182/77, ERP IS AWARE. PT STATES HE IS SIGNING OUT, SIG OTHER STATES SHE WILL TRANSPORT. PT STATED HE DID NOT WANT TRANSFERRED TO ANY OTHER FACILITY, DECLINED THIS RN TO MAKE CALLS FOR ATTEMPTING PLACEMENT. PT IS CALM, COOPERATIVE, A & O X4, NAD NOTED. AMA FORM TO BE SIGNED.
--- NOTE | 2022-01-15 17:32 | PC.NURSE ---
[facility] @ 1715, NO ANSWER. 2ND ATTEMPT TO [facility]
== END 2022-01-15 17:15 | disposition left against medical advice (07) ==
PROVIDERS: Emergency Medicine; Emergency Provider Emergency Medicine; PCP Internal Medicine
DX: I63.9 Cerebral infarction, unspecified (principal); I69.992 Facial weakness following unspecified cerebrovascular disease; F17.200 Nicotine dependence, unspecified, uncomplicated; E78.5 Hyperlipidemia, unspecified; I10 Essential (primary) hypertension; Z86.718 Personal history of other venous thrombosis and embolism
CPT/HCPCS: 36415; 70450; 70496; 70498; 71045; 80053; 81001; 82948; 83605; 84484; 85025; 85610; 85730; 93005; 96361; 96374; 96376; 99284; A9270; J7030; J7040; Q9967

== ENCOUNTER 2022-01-16 11:00 | Inpatient (IN) | payer OTHER, SELFPAY ==
[2022-01-16] VITALS (15 sets, daily range): BP systolic 145–208; BP diastolic 68–98; PULSE 55–85; RESP 12–23; TEMP 36.3–36.8; O2SAT 95–100; BMI 29.5
--- NOTE | ~2022-01-16 | CT_ITS ---
EXAMINATION: CT brain wo con DATE: 01/20/2022 18:09 INDICATION: possible CVA . TECHNIQUE: Computed tomography (CT) of the head was performed without intravenous contrast. The mA wa s adjusted according to patient size. Iterative reconstruction technique was employed. The dose-lengt h product was 605.33 mGy-cm. COMPARISON: 01/16/2022 FINDINGS: No acute intracranial hemorrhage or extra-axial fluid collection. No hydrocephalus, mass, or herniation. No hyperacute ischemic infarct. Enlargement of the known acute left basal ganglia infarct, now involv ing a large portion of the lentiform nucleus and extending into the internal capsule. Evolution of th e infarct in the affected tissue which has become increasingly hypodense. Unremarkable dural venous sinus attenuation. No acute osseous abnormality. The aerated spaces are clear. IMPRESSION: Evolution/extension of the known acute left basal ganglia infarct. Results reported telephonically to Marcia Ren RN by Dr. Roger at 0 6:24 PM on 01/20/2022. Reviewed, dictated and finalized at location K. [employer] IMPRESSION: Evolution/extension of the known acute left basal ganglia infarct. Results reported telephonically to Marcia Ren RN by Dr. Roger at 0 6:24 P M on 01/20/2022.
--- NOTE | ~2022-01-16 | XR_ITS ---
MODIFIED ESOPHAGRAM HISTORY: Dysphagia. TECHNIQUE: Modified barium esophagram was performed on 01/17/22. I administered fluoroscopy and perfor med the exam with speech pathologist. Patient was seated for lateral fluoroscopic imaging for ingest ion of thin liquids, pudding, solids and quantified amounts, followed by thin liquids in uncontrolled amounts. This was recorded on tape. A single fluoroscopic spot image was also recorded. The DAP for this procedure was 0.872 Gycm2. The amount of fluoroscopy time used during this procedure was 0.9 min utes. FINDINGS: Oral stage: Adequate function. Pharyngeal stage: Adequate function. Cervical/esophageal stage: Adequate function. IMPRESSION: Patient tolerated regular consistency oral feedings in the upright position. Please leeanne elate with speech pathologist findings and specific feeding recommendations. Reviewed, dictated and finalized at location B. IMPRESSION: Patient tolerated regular consistency oral feedings in the upright position. Please correlate with speech pathologist findings and specific feedi ng recommendations.
--- NOTE | ~2022-01-16 | CT_ITS ---
EXAMINATION: CTA brain carotid DATE: 01/16/2022 15:35 INDICATION: CVA TECHNIQUE: Computed tomographic angiography (CTA) of the head and neck was performed withwith 100 mL Omnipaque-350 intravenous contrast. Automated exposure control and iterative reconstruction technique were employed. The dose-length product was 1128.48 mGy-cm. Maximum intensity projection and volume r endered 3D-reconstructions were created by the technologist on a separate workstation. COMPARISON: 01/14/2022. CT brain 01/16/2022. FINDINGS: CTA HEAD: No large vessel occlusion, aneurysm, high flow vascular malformation, nidus or extravasation. Communi cating arteries are normal. Severe, smoothly marginated short segment stenosis of the distal right ve rtebral artery at its termination, without soft or calcified plaque. Mild calcified plaque at the cav ernous carotids, without stenosis. Ethmoid air cell mucosal thickening. Aerated secretions in the max illary sinuses. CTA NECK: Aortic arch and proximal great vessels: Mild atherosclerotic calcifications at the visualized aortic arch and proximal great vessels. Right common carotid, carotid bifurcation, and internal carotid artery: Calcified plaque at the bifur cation.There is 0% stenosis of the proximal right internal carotid artery relative to normal distal a rtery lumen diameter (NASCET criteria). Left common carotid, carotid bifurcation, and internal carotid artery: Calcified plaque at the bifurc ation.There is 0% stenosis of the proximal left internal carotid artery relative to normal distal art ariel lumen diameter (NASCET criteria). Vertebral arteries: Calcification and mild stenosis at the origin of the left vertebral artery. Verte bral arteries co-dominant. Other findings: 6 mm hypodense lesion in the right thyroid gland which requires no additional workup. Periodontal disease and dental caries. IMPRESSION: No large vessel occlusion. 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 Periodontal disease and dental caries. Paranasal sinus disease. Reviewed, dictated and finalized at location K. IMPRESSION: No large vessel occlusion. Congenital appearing stenosis of the left distal jaya tebral artery at its termination, unchanged. Periodontal disease and dental car ies. Paranasal sinus disease.
--- NOTE | ~2022-01-16 | CT_ITS ---
EXAMINATION: CT brain wo con DATE: 01/16/2022 13:32 INDICATION: Right-sided facial droop and right arm weakness. TECHNIQUE: Computed tomography (CT) of the head was performed without intravenous contrast. Sagittal and coronal reconstructions were performed. The mA was adjusted according to patient size. Iterative reconstruction technique was employed. The dose-length product was 605.33 mGy-cm. COMPARISON: head CT dated 01/14/2022 FINDINGS: No acute intracranial hemorrhage or abnormal extra axial fluid collection. There is a new small focus of significantly decreased attenuation at the posterior left lentiform nucleus which is not evident at this location on the study from 2 days prior consistent with acute lacunar infarct. There is moder ate scattered white matter hypoattenuation consistent with chronic small vessel ischemic disease. Rodrigo tricles are normal and symmetric. No mass/mass effect. Mild mucosal thickening in the bilateral ethmo id and left maxillary sinuses. The orbits, paranasal sinuses and mastoid air cells are normal. IMPRESSION: 1. New small acute lacunar infarct at the posterior left lentiform nucleus. 2. Stable appearance of an additional moderate scattered white matter hypoattenuation consistent with chronic small vessel ischemic disease. Reviewed, dictated and finalized at location B. IMPRESSION: 1. New small acute lacunar infarct at the posterior left lentiform nucleus. 2. Stable appearance of an additional moderate scattered white matter hypoatten uation consistent with chronic small vessel ischemic disease.
--- NOTE | ~2022-01-16 | CT_ITS ---
EXAMINATION: CTA brain carotid DATE: 01/20/2022 19:18 INDICATION: left facial droop, R ARM LEG WEAKNESS, SLURRED SPEECH TECHNIQUE: Computed tomographic angiography (CTA) of the head and neck was performed withwith 100 mL Omnipaque-350 intravenous contrast. Automated exposure control and iterative reconstruction technique were employed. The dose-length product was 1184.12 mGy-cm. Maximum intensity projection and volume r endered 3D-reconstructions were created by the technologist on a separate workstation. COMPARISON: CT brain, same date, CTA brain carotid 01/16/2022, CTA brain carotid 01/14/2022, CTA brain carotid 02/12/2008. FINDINGS: CTA HEAD: No large vessel occlusion, aneurysm, high flow vascular malformation, nidus or extravasation.Slightly hypoplastic left A1 segment. The anterior communicating artery is patent. Mild calcified plaque in t he bilateral cavernous carotids. Bilateral posterior communicating arteries are patent. Short segment stenosis of the distal right vertebral artery at its termination. CTA NECK: Aortic arch and proximal great vessels: Mild atherosclerotic calcifications at the visualized aortic arch and proximal great vessels. Bovine arch. Right common carotid, carotid bifurcation, and internal carotid artery: Mild calcified plaque at the bifurcation.There is 0% stenosis of the proximal right internal carotid artery relative to normal dis kelly artery lumen diameter (NASCET criteria). Left common carotid, carotid bifurcation, and internal carotid artery: Mild calcified plaque at the b ifurcation.There is 0% stenosis of the proximal left internal carotid artery relative to normal dista l artery lumen diameter (NASCET criteria). Vertebral arteries: Mild stenosis from calcified plaque at the origin of the left vertebral artery. V ertebral arteries co-dominant. Other findings: Stable right thyroid lesion which requires no additional workup. Periodontal disease. Dental caries. Bibasilar atelectasis and mild interstitial pulmonary edema. 9 mm pretracheal lymph n ode, which was obscured by beam hardening artifact in the prior study. IMPRESSION: No large vessel occlusion. Stable congenital appearing left distal vertebral artery narrowing, otherw ise no severe carotid, vertebral, or intracranial stenosis. Interstitial pulmonary edema. Borderline pretracheal lymphadenopathy. Reviewed, dictated and finalized at location K. EOGRAPHER IMPRESSION: No large vessel occlusion. Stable congenital appearing left distal vertebral ar enedina narrowing, otherwise no severe carotid, vertebral, or intracranial stenosi s. Interstitial pulmonary edema. Borderline pretracheal lymphadenopathy.
--- NOTE | ~2022-01-16 | XR_ITS ---
EXAMINATION: XR chest 1V portable DATE: 01/16/2022 13:25 INDICATION: Chest tightness. TECHNIQUE: A single frontal view of the chest was obtained. COMPARISON: Chest single view 01/14/2022, chest CT 08/03/2020 FINDINGS: The chest demonstrates clear lungs without pneumonia, pleural effusion, or pneumothorax. Th e heart size is normal. IMPRESSION: 1. No acute cardiopulmonary disease. Reviewed, dictated and finalized at location A.
--- NOTE | 2022-01-16 11:09 | ECG_ITS ---
Measurements Intervals [place] Rate: 65 P: 26 WI: 139 QRS: -59 QRSD: 86 T: 87 QT: 380 QTc: 395 Interpretive Statements SINUS RHYTHM LEFT AXIS DEVIATION POOR R WAVE PROGRESSION, ANTERIOR LEADS INFERIOR INFARCT, AGE INDETERMINATE BORDERLINE ST-T WAVE ABNORMALITY- HIGH LATERAL LEADS BASELINE ARTIFACT- I, II, AVR ABNORMAL ECG COMPARED TO ECG 01/14/2022 14:03:11 NO SIGNIFICANT CHANGES Electronically Signed On 01-16-2022 11:46:12 CDT by Fox Edwards D.O.
[2022-01-16] MEDS: ASPIRIN 81 MG CHEWABLE TABLET 324 MG PO (12:59)
[2022-01-16 13:11] LABS: Basophils Absolute Auto 0.1 K/mm3 (0.0-0.1); Eosinophils Absolute Auto 0.2 K/mm3 (0-0.3); Eosinophils Percent Auto 1.5 % (0-4.4); Hematocrit 48.9 % (42.0-52.0); Hemoglobin 17.1 g/dL (14.0-18.0); Immature Granulocyte Absolute 0.07 K/mm3 (0.00-0.031); Immature Granulocyte Percent A 0.6 % (0-0.5); Lymphocytes Absolute Auto 2.37 K/mm3 (0.9-3.2); Lymphocytes Percent Auto 19.1 % (18.3-44.2); Mean Corpuscular Hemoglobin 31.8 pg (26-34); Mean Corpuscular Volume 91.1 fl (80-100); Mean Platelet Volume 9.4 fl (7.4-10.4); Monocytes Absolute Auto 0.9 K/mm3 (0.1-0.6); Monocytes Percent Auto 7.1 % (2.6-8.5); Neutrophils Absolute Auto 8.8 K/mm3 (1.3-6.7); Neutrophils Percent Auto 70.7 % (45.5-73.1); Platelet Count Result 257 k/mm3 (150-375); Red Blood Count 5.37 M/mm3 (4.6-6.20); White Blood Count 12.4 K/mm3 (4.5-10.0)
--- NOTE | 2022-01-16 13:18 | ED.GENADULT ---
HPI - General Adult General Chief complaint: Neuro Symptoms/Deficit Stated complaint: facial droop x2 days Time Seen by Provider: 01/16/22 12:55 History of Present Illness HPI narrative: 61-year-old male with history of hypertension, high cholesterol and history of peripheral artery disease presenting the emergency department for evaluation of right arm weakness and change in his speech. Patient states patient had developed some change in speech and right hand weakness approximately 2 days ago. Patient did present to [facility] on Friday and reports that as they got his blood pressure under control and his speech improved but his hand weakness persisted. Patient states that because he felt improved and because they were having difficulty finding a bed to transfer him so he signed out AMA. Patient states overnight that the speech symptoms worsened again and he has still had persistent right hand weakness. Related Data Home Medications Medication Instructions Recorded Confirmed atorvastatin 20 mg tablet 20 mg PO DAILY 06/16/19 01/14/22 famotidine 40 mg tablet 40 mg PO DAILY 01/14/22 01/14/22 ramipril 10 mg capsule 10 mg PO DAILY 01/14/22 01/14/22 rivaroxaban 20 mg tablet (Xarelto) 20 mg PO DAILY 01/14/22 01/14/22 Allergies Allergy/AdvReac Type Severity Reaction Status Date / Time No Known Allergies Allergy Verified 01/16/22 11:09 Review of Systems Review of Systems: CONSTITUTIONAL: Denies fever, chills, or sweats. EYES: Denies visual changes, redness, or discharge. ENT: Denies rhinorrhea, congestion, sore throat, or otalgia. CARDIOVASCULAR: Denies chest pain, palpitations, or edema. RESPIRATORY: Denies cough or dyspnea. GASTROINTESTINAL: Denies abdominal pain, nausea, vomiting, or diarrhea. GENITOURINARY: Denies dysuria or hematuria. SKIN: Denies rash or itching. MUSCULOSKELETAL: Denies back pain, joint pain, or myalgia. NEUROLOGIC: Denies headache, numbness, or weakness. PSYCHIATRIC: Denies anxiety or depression. [facility] Past Medical History Medical History DVT (deep venous thrombosis) Dyslipidemia Fracture of L1 vertebra Hypertension Peripheral vascular disease TIA (transient ischemic attack) Surgical History Surgical History History of hip surgery left, iliotibial band S/P femoral-femoral bypass surgery Family History Family History Mother Family history of neuropathy Family history of primary malignant neoplasm of liver Patient's mother is Sibling Patient's brother is in good health Family history of malignant neoplasm of brain Patient's brother is Father Carcinoma of colon Patient's father is Social History Social History Smoking status: Current every day smoker Tobacco type: cigarettes Alcohol intake: unknown Substance use type: marijuana Gender identity (if verbalized by the patient): Male Spiritual care concerns: No Exam Narrative: APPEARANCE: Well appearing, no pain, no distress, well-nourished. HEAD: normocephalic, atraumatic. EYES: PERRLA/EOMI, conjunctivae clear. NOSE: Normal no drainage EARS:TMS clear with good light reflex. THROAT: Pharynx clear, no exudate. NECK: Supple. No adenopathy, no masses. RESPIRATORY: Airway patent, respirations nonlabored. Clear to auscultation bilaterally, no rales, rhonchi, wheezing. CARDIOVASCULAR: Regular rate and rhythm without murmurs rubs or gallops. ABDOMINAL: Soft, nontender, nondistended, normal bowel sounds MUSCULOSKELETAL: Moves all extremities. Strength/ROM intact, No edema, No calf tenderness. NEURO: Alert. Cranial nerves II through XII intact. Mildly decreased strength of the right hand with some discoordination with fine motor SKIN: Warm, dry. N
[2022-01-16 13:23] LABS: Alanine Aminotransferase 33 U/L (6-50); Albumin Level 4.5 g/dL (3.5-5.1); Alkaline Phosphatase 70 U/L (38-126); Anion Gap 12 mmol/L (8-16); Aspartate Amino Transferase 34 U/L (17-59); Bilirubin,Total 0.5 mg/dL (0.2-1.3); Blood Urea Nitrogen 15 mg/dL (9-20); Calcium 8.8 mg/dL (8.4-10.2); Carbon Dioxide 25 mmol/L (22-30); Chloride 103 mmol/L (98-107); Estimated CRCL calculation 73 ml/min; Estimated Glomerular Filt Rate > 60; Glucose 105 mg/dL (65-110); Lipase 94 U/L (23-300); Potassium 3.8 mmol/L (3.4-5.0); Sodium 140 mmol/L (137-145)
[2022-01-16 13:25] LABS: INR 1.4; Prothrombin Time 16.5 Seconds (11.1-14.7)
[2022-01-16 13:26] LABS: Partial Thromboplastin Time 41.2 SECONDS (22.3-36.8)
--- NOTE | 2022-01-16 13:32 | PC.NURSE ---
Pt to CT scan via stretcher at this time.
[2022-01-16 13:34] LABS: Troponin I < 0.012 ng/mL (0.000-0.034)
[2022-01-16] MEDS: hydrALAZINE HCL 20 MG/ML VIAL 10 MG IV PUSH ×2 (14:12→16:37)
[2022-01-16 15:20] LABS: SARS-CoV-2 RNA PCR Negative
[2022-01-16 16:31] LABS: Troponin I < 0.012 ng/mL (0.000-0.034)
[2022-01-16] MEDS: hydrALAZINE HCL 20 MG/ML VIAL (18:27)
--- NOTE | 2022-01-16 18:53 | ADMGEN ---
This patient, Maurice Israel, was admitted to 3 [facility] Surg Room 300-01. Patient/family oriented to hospital policies and general routines including ID bracelet, bed and alarms, visiting hours, pain management, procedures, bathroom and other care routines, personal items, smoking policy, room service/diet, and visiting hours. Information on how to activate the Rapid Response Team has been discussed. Patient/Family are encouraged to report perceived risks to care and to ask questions if they do not understand what they are told or what they should do.
--- NOTE | 2022-01-16 19:37 | PM.IMHP ---
H&P: HPI History of Present Illness Date/Time: 01/16/22 19:37 Chief Complaint: Neurological symptoms Narrative: This is a 61-year-old male patient with a history of hyperlipidemia, hypertension and peripheral artery disease. The patient came to the emergency room for evaluation of right arm weakness and change in his speech. This has been happening over the last 2 days. The patient presented to [facility] initially on Friday and reports that when his blood pressure improved he felt much better patient's speech became better but he was still little bit weak on the right arm the patient felt improved and was not having any further difficulty and did not want to be transferred for here to [facility] at that time so he signed out AMA. So overnight his symptoms worsened again and his right-sided arm weakness continued there for the patient came to the emergency room here at [facility]. The patient is already on Xarelto for a DVT. The patient had as head CT today that shows new small acute lacunar infarct at the posterior left lentiform nucleus. Stable appearance of an additional moderate scattered white matter hypoattenuation consistent with small vessel ischemic disease. Chest x-ray was read as no acute cardiopulmonary disease. Head and neck CTA was read as no large vessel occlusion. 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 Periodontal disease and dental caries. Paranasal sinus disease. The patient was given an aspirin and hydralazine in the emergency room. Neurology has been consulted. The patient is being admitted to observation status on the date of service of 01/16/2022. Review of Systems Review of Systems: See HPI All systems reviewed & are unremarkable except as noted in HPI and below Constitutional: Constitutional: Reports as per HPI and Reports no additional constitutional complaints Eyes: Eyes: Reports as per HPI and Reports no additional eye complaints ENT: Reports system reviewed and no additional complaints, except as documented and Reports Normal hearing present Cardiovascular: Cardiovascular: Reports no additional cardiovascular complaints Respiratory: Respiratory: Reports no additional respiratory complaints and Reports no additional respiratory complaints Gastrointestinal: Gastrointestinal: Reports as per HPI and Reports no additional gastrointestinal complaints Musculoskeletal: Musculoskeletal: Reports no additional musculoskeletal complaints Integumentary/Breasts: Skin/Breast: Reports system reviewed and no additional complaints, except as docu and Reports as per HPI Neurologic: Reports system reviewed and no additional complaints, except as documented, Reports as per HPI and Reports Normal hearing present Psychiatric: Psychiatric: Reports no additional psychiatric complaints and Reports as per HPI Endocrine: Endocrine: Reports no additional endocrine complaints Hematologic/Lymphatic: Hematologic/Lymphatic: Reports no additional hematologic/lymphatic complaints Allergic/Immunologic: Allergic/Immunologic: Reports no additional allergic/immunologic complaints [facility] Past Medical History Medical History (Updated 01/16/22 @ 22:57 by Candy Underwood NP) DVT (deep venous thrombosis) Dyslipidemia Fracture of L1 vertebra 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
[2022-01-16] MEDS: LORazepam INJ (*CRX) 2 MG/ML VIAL 0.5 MG IV PUSH (19:51)
[2022-01-16 20:36] LABS: Troponin I < 0.012 ng/mL (0.000-0.034)
[2022-01-17] VITALS (10 sets, daily range): BP systolic 118–155; BP diastolic 66–83; PULSE 62–103; RESP 16–20; TEMP 35.9–36.5; O2SAT 95–99
--- NOTE | 2022-01-17 | ECHO_ITS ---
Patient Info Name: Maurice Israel Age: 61 years : 1960 Gender: Male Ht: 68 in Wt: 194 lbs BSA: 2.08 m2 HR: 68 bpm BP: 118 / 66 mmHg Technical Quality: Fair Exam Date: 01/17/2022 2:16 PM Exam Location: [facility] Patient Status: Inpatient Admit Date: 01/16/2022 Staff Ordering Physician: Candy Underwood NP [employer] Consultant: Denice Liz RDCS Attending Provider: Bradley Caputo MD Referring Physician: Ysamine SILVERMAN; Exam Type: CA echo doppler w bubble study Study Info Indications - STROKE Complete two-dimensional, color flow and Doppler transthoracic echocardiogram is performed. Contrast/Agitated Saline Contrast/Ag. Saline: Agitated Saline Amount: 20.00 ml Administered By: Germaine Mendoza Existing IV Access: Yes IV Access Condition: patent with no signs of infiltration Summary 1. Complete two-dimensional, color flow and Doppler transthoracic echocardiogram is performed. 2. Left ventricular chamber dimension is normal. 3. Left ventricular systolic function is normal, estimated at 65-70%. 4. The left ventricular diastolic function is grade I diastolic dysfunction. 5. E/e' 10 is mildly elevated. 6. Global longitudinal strain is abnormal at -12.5%. 7. There is mild aortic valve sclerosis. 8. No pulmonary hypertension, estimated pulmonary arterial systolic pressure is 15 mmHg. Left Ventricle E/e' 10 is mildly elevated. Global longitudinal strain is abnormal at -12.5%. Left ventricular chamber dimension is normal. Left ventricular systolic function is normal, estimated at 65-70%. The left ventricular diastolic function is grade I diastolic dysfunction. Right Ventricle Right ventricular systolic function is normal and with normal TAPSE 1.8 cm. Right ventricular chamber dimension is normal. Left Atria Left atrial chamber dimension is normal. Right Atria Right atrial chamber dimension is normal. Atrial Septum Agitated saline injection with and without valsalva maneuver opacified right side cardiac chambers without shunt to left side cardiac chambers. Intact interatrial septum visualized by 2D and agitated saline imaging. Aortic Valve The aortic valve is trileaflet. There is mild aortic valve sclerosis. There is no aortic valve stenosis. There is no aortic valve regurgitation. Pulmonic Valve There is no pulmonic regurgitation. Mitral Valve There is no mitral valve stenosis. There is no mitral valve regurgitation. Tricuspid Valve There is no tricuspid valve regurgitation. No pulmonary hypertension, estimated pulmonary arterial systolic pressure is 15 mmHg. Pericardium/Pleural There is no pericardial effusion. Inferior Vena Cava Normal inferior vena cava with >50% collapse upon inspiration consistent with normal right atrial pressure, 5 mmHg. Aorta The aortic root size at the sinus of Valsalva is normal. Left Ventricular Outflow Tract Name Value Normal LVOT 2D LVOT Diameter 2.0 cm LVOT Doppler LVOT Peak Gradient 5 mmHg LVOT Mean Gradient 3 mmHg
[2022-01-17] MEDS: LORazepam INJ (*CRX) 2 MG/ML VIAL 0.5 MG IV PUSH (02:27)
[2022-01-17 06:08] LABS: Basophils Absolute Auto 0.1 K/mm3 (0.0-0.1); Basophils Percent Auto 0.9 % (0.2-1.2); Eosinophils Absolute Auto 0.2 K/mm3 (0-0.3); Eosinophils Percent Auto 1.9 % (0-4.4); Hematocrit 48.9 % (42.0-52.0); Hemoglobin 16.5 g/dL (14.0-18.0); Immature Granulocyte Absolute 0.05 K/mm3 (0.00-0.031); Immature Granulocyte Percent A 0.5 % (0-0.5); Lymphocytes Absolute Auto 2.44 K/mm3 (0.9-3.2); Mean Corpuscular HGB Conc 33.7 g/dl (32-36); Mean Corpuscular Hemoglobin 31.9 pg (26-34); Mean Corpuscular Volume 94.4 fl (80-100); Mean Platelet Volume 9.4 fl (7.4-10.4); Monocytes Percent Auto 9.5 % (2.6-8.5); Neutrophils Absolute Auto 6.8 K/mm3 (1.3-6.7); Neutrophils Percent Auto 64.2 % (45.5-73.1); Platelet Count Result 245 k/mm3 (150-375); Red Blood Count 5.18 M/mm3 (4.6-6.20); Red Cell Distribution Width 12.4 % (11.5-14.5); White Blood Count 10.6 K/mm3 (4.5-10.0)
[2022-01-17 06:40] LABS: Alanine Aminotransferase 31 U/L (6-50); Albumin Level 4.3 g/dL (3.5-5.1); Alkaline Phosphatase 66 U/L (38-126); Anion Gap 11 mmol/L (8-16); Aspartate Amino Transferase 28 U/L (17-59); Bilirubin,Total 0.9 mg/dL (0.2-1.3); Blood Urea Nitrogen 18 mg/dL (9-20); Calcium 8.6 mg/dL (8.4-10.2); Carbon Dioxide 21 mmol/L (22-30); Chloride 106 mmol/L (98-107); Estimated CRCL calculation 66 ml/min; Estimated Glomerular Filt Rate > 60; Glucose 107 mg/dL (65-110); Lipase 100 U/L (23-300); Magnesium 1.9 mg/dL (1.6-2.3); Potassium 3.8 mmol/L (3.4-5.0); Sodium 138 mmol/L (137-145)
--- NOTE | 2022-01-17 08:22 | PM.IMPN ---
Progress Note: A&P Assessment and Plan (1) Acute CVA (cerebrovascular accident): Code(s): I63.9 - Cerebral infarction, unspecified Status: Acute Assessment and Plan: -PT and OT And ST evaluation neurology consulted On Xarelto Did receive aspirin yesterday. No aspirin or Plavix per Neurology Not a candidate for tPA as he is already on anticoagulation and out of window for treatment for CVA Associated right-sided hemiparesis expressive aphasia and dysphagia due to given acute stroke Needs acute inpatient rehabilitation / (2) DVT (deep venous thrombosis): Code(s): I82.409 - Acute embolism and thrombosis of unspecified deep veins of unspecified lower extremity Status: Acute Assessment and Plan: -the the patient is on Xarelto which is continued (3) Dyslipidemia: Code(s): E78.5 - Hyperlipidemia, unspecified Status: Acute Assessment and Plan: -continue with atorvastatin after he has had his swallow study and if it is negative. Will check lipid profile He may need antiplatelet therapy as well due to his history of peripheral vascular disease Will place him on baby aspirin a day (4) Hypertension: Code(s): I10 - Essential (primary) hypertension Status: Acute Assessment and Plan: -p.r.n. hydralazine. hold blood pressure medication Allow permissive hypertension due to acute stroke will start IV fluids (5) PAD (peripheral artery disease): Code(s): I73.9 - Peripheral vascular disease, unspecified Status: Acute Assessment and Plan: -the patient has had a fem-pop bypass surgery in the past. 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 Subjective Date/time seen: 01/17/22 08:22 Interval history: This is a 61-year-old male patient with a history of hyperlipidemia, hypertension and peripheral artery disease.? The patient came to the emergency room for evaluation of right arm weakness and change in his speech.? This has been happening over the last 2 days.? The patient presented to [facility] initially on Friday and reports that when his blood pressure improved he felt much better patient's speech became better but he was still little bit weak on the right arm the patient felt improved and was not having any further difficulty and did not want to be transferred for here to [facility] at that time so he signed out AMA.? So overnight his symptoms worsened again and his right-sided arm weakness continued there for the patient came to the emergency room here at [facility].? The patient is already on Xarelto for a DVT.? The patient had as head CT today that shows new small acute lacunar infarct at the posterior left lentiform nucleus.? Stable appearance of an additional moderate scattered white matter hypoattenuation consistent with small vessel ischemic disease.? Chest x-ray was read as no acute cardiopulmonary disease.? Head and neck CTA was read as no large vessel occlusion.? 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 Periodontal disease and dental caries.? Paranasal sinus disease.? The patient was given an aspirin and hydralazine in the emergency room.? Neurology has been consulted.? The patient is being admitted to observation status on the date of service of 01/16/2022. 01/17/2022: right-sided weakness persist. Went for swallow evaluation. Discussed with speech therapist. jamie at bedside and discussed with her. He has intermittently missed his Xarelto. Review of Systems Review of Systems: All systems reviewed & are unremarkable except as noted in HPI and below Exam Narrative: APPEARANCE: ill looking, not in acute distress HEAD: normocephalic, atraumatic.
[2022-01-17] MEDS: ATORVASTATIN 20 MG TABLET PO (08:41)
[2022-01-17] MEDS: RIVAROXABAN 20 MG TABLET PO (08:41)
[2022-01-17] MEDS: ramipriL 5 MG CAPSULE 10 MG PO (08:41)
--- NOTE | 2022-01-17 10:42 | PCOTNOTE ---
Attempted to see pt. for occupational therapy evaluation, pt. away from room at this time for testing. Nursing requested pt. be seen at later time while additional diagnostics are performed for safety
--- NOTE | 2022-01-17 11:24 | PCSTNOTE ---
Modified barium swallow completed. Patient was given thin, mildly thick, pureed, and mixed consistencies. No penetration or aspiration. Premature spillage during oral phase observed with mixed consistency, however, no penetration or aspiration seen. Due to patient's overall condition and new CVA it is recommended that patient receive minced and moist diet with mildly thickened liquids for now. This can be progressed as patient becomes stronger and more consistently alert. Speech therapy recommended to address premature spillage with mixed consistency. In addition, speech therapy recommended to address impaired functional communication due to severe response latency and diminished vocal intensity. Although patient's auditory comprehension scores are high, his response latency is significant. Patient's voice is very soft and poor coordination of respiration to support phonation is present. Breath support for voice is impaired. Thank you for the referral of this patient. [ End ]
--- NOTE | 2022-01-17 12:16 | WPDNEURCNPN ---
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 hydralazine. Does have history of hereditary thrombophilia due to tdisfibrinoginemia Consult date: 01/17/22 Reason for consult: Years old right-handed male has been admitted to [facility] through the emergency room where patient presented with facial droop a 48 hours duration in addition to the right upper extremity weakness and difficulties in speech initially patient presented to [facility] on Friday where they got his blood pressure under control, his speech improved but the hand weakness persisted subsequently as they were having difficulties in finding a bad to transfer him he signed out against medical advice but overnight at home symptoms were sent and the right-hand weakness also persisted so he came here. He has been taking atorvastatin 20 mg daily, famotidine 40 mg daily, ramipril 10 mg daily, and rivaroxaban 20 mg daily. He has ongoing history of DVT, hypertension, peripheral vascular disease, and history of TIA in the past, has also undergone femoral to femoral bypass surgery, currently his everyday smoker, in the emergency room the CT scan documented an acute lacunar infarct, CTA revealed no large vessel occlusion, patient was already taking Xarelto for no other medications were restarted. Initial vital signs were with blood pressure of 202/78 subsequently 152/86 CBC was normal and so as the BMP. 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ant neoplasm of brain Patient's brother is Father Carcinoma of colon Patient's father is Social History Social History (Updated 01/16/22 @ 22:54 by Candy Underwood NP) Social History: The patient lives with his fiancee who states that she is the durable power forcer maker for healthcare. The patient has 1 daughter who he is estranged from. The patient is . The patient is disabled. He does use marijuana for his back pain. The patient does not use any alcohol. The patient continues to smoke at least a pack a cigarettes a day every day. He uses marijuana for his lower back pain. Code status full code. Smoking status: Current every day smoker Tobacco type: cigarettes Alcohol intake: former Substance use type: marijuana Other substance usage details
--- NOTE | 2022-01-17 15:19 | PCPTNOTE ---
Waiting on Brain MRI prior to initiation of therapy for safety reasons per RN. Will follow.
[2022-01-17] MEDS: ASPIRIN 81 MG ENTERIC TABLET PO (16:37)
[2022-01-17] MEDS: SODIUM CHLORIDE 0.9% IV 1,000 ML 100 ML IV CONT (16:37)
[2022-01-17 17:34] LABS: Cholesterol 251 mg/dL (0-200); HDL Direct 23 mg/dL; Triglycerides 194 mg/dL (<150)
[2022-01-17 17:41] LABS: Hemoglobin A1C 5.7 % (<5.7)
[2022-01-17 17:44] LABS: LDL Cholesterol Direct 172 mg/dL
[2022-01-17] MEDS: HYDROcodone/acetaminophen (*CRX) 5-325 MG TABLET 1 TAB PO (21:04)
[2022-01-18] VITALS (9 sets, daily range): BP systolic 149–161; BP diastolic 70–83; PULSE 53–78; RESP 16–19; TEMP 35.9–36.7; O2SAT 93–100
[2022-01-18] MEDS: SODIUM CHLORIDE 0.9% IV 1,000 ML 100 ML IV CONT ×2 (02:54→13:17)
[2022-01-18 06:36] LABS: Basophils Absolute Auto 0.1 K/mm3 (0.0-0.1); Eosinophils Absolute Auto 0.2 K/mm3 (0-0.3); Eosinophils Percent Auto 2.4 % (0-4.4); Hematocrit 47.8 % (42.0-52.0); Hemoglobin 16.5 g/dL (14.0-18.0); Immature Granulocyte Absolute 0.04 K/mm3 (0.00-0.031); Immature Granulocyte Percent A 0.4 % (0-0.5); Lymphocytes Absolute Auto 2.84 K/mm3 (0.9-3.2); Lymphocytes Percent Auto 28.7 % (18.3-44.2); Mean Corpuscular HGB Conc 34.5 g/dl (32-36); Mean Corpuscular Hemoglobin 31.9 pg (26-34); Mean Corpuscular Volume 92.3 fl (80-100); Mean Platelet Volume 9.7 fl (7.4-10.4); Neutrophils Absolute Auto 5.7 K/mm3 (1.3-6.7); Neutrophils Percent Auto 57.5 % (45.5-73.1); Platelet Count Result 255 k/mm3 (150-375); Red Blood Count 5.18 M/mm3 (4.6-6.20); Red Cell Distribution Width 12.1 % (11.5-14.5); White Blood Count 9.9 K/mm3 (4.5-10.0)
[2022-01-18 06:49] LABS: Alanine Aminotransferase 30 U/L (6-50); Albumin Level 4.2 g/dL (3.5-5.1); Alkaline Phosphatase 64 U/L (38-126); Anion Gap 12 mmol/L (8-16); Aspartate Amino Transferase 32 U/L (17-59); Blood Urea Nitrogen 19 mg/dL (9-20); Calcium 8.1 mg/dL (8.4-10.2); Carbon Dioxide 21 mmol/L (22-30); Chloride 106 mmol/L (98-107); Estimated CRCL calculation 73 ml/min; Estimated Glomerular Filt Rate > 60; Glucose 96 mg/dL (65-110); Magnesium 2.1 mg/dL (1.6-2.3); Potassium 3.8 mmol/L (3.4-5.0); Sodium 139 mmol/L (137-145)
[2022-01-18] MEDS: ASPIRIN 81 MG ENTERIC TABLET PO (08:29)
[2022-01-18] MEDS: RIVAROXABAN 20 MG TABLET PO (08:29)
[2022-01-18] MEDS: ATORVASTATIN 40 MG TABLET 80 MG PO (08:29)
[2022-01-18] MEDS: LIDOCAINE 5% PATCH 1 PATCH TRANSDERM (08:30)
[2022-01-18] MEDS: LORazepam INJ (*CRX) 2 MG/ML VIAL 0.5 MG IV PUSH ×2 (09:49→20:44)
--- NOTE | 2022-01-18 10:09 | PC.NURSE ---
Pt's was quite upset because I had erased the vulgar message she wrote on the white board. She rewrote the message on the dry erase board and informed me that it gives him comfort and hope. She further stated that she got permission yesterday from the nurse to write the message on there. No note or message was given to me so I wasn't aware that Fu You! with a picture of a Vinny tree was a heart warming message as the is asserting. I assured her that I would not erase it again and would document our conversation so additional staff would be aware.
--- NOTE | 2022-01-18 14:28 | PM.IMPN ---
Progress Note: A&P Assessment and Plan (1) Acute CVA (cerebrovascular accident): Code(s): I63.9 - Cerebral infarction, unspecified Status: Acute Assessment and Plan: -PT and OT And ST evaluation neurology consulted On Xarelto Did receive aspirin yesterday. No aspirin or Plavix per Neurology Not a candidate for tPA as he is already on anticoagulation and out of window for treatment for CVA Associated right-sided hemiparesis expressive aphasia and dysphagia due to given acute stroke Needs acute inpatient rehabilitation started on aspirin 81 mg daily due to underlying history of hypertension/hyperlipidemia Echo with no thrombus or PFO EF 65-70% grade 1 diastolic dysfunction Head and neck CTA with no large vessel occlusion. 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 (2) DVT (deep venous thrombosis): Code(s): I82.409 - Acute embolism and thrombosis of unspecified deep veins of unspecified lower extremity Status: Acute Assessment and Plan: -the the patient is on Xarelto which is continued (3) Dyslipidemia: Code(s): E78.5 - Hyperlipidemia, unspecified Status: Acute Assessment and Plan: -continue with atorvastatin after he has had his swallow study and if it is negative. Will check lipid profile He may need antiplatelet therapy as well due to his history of peripheral vascular disease placed on aspirin a day Atorvastatin increased to 80 mg daily LDL 172 gold less than 70 (4) Hypertension: Code(s): I10 - Essential (primary) hypertension Status: Acute Assessment and Plan: -p.r.n. hydralazine. hold blood pressure medication Allow permissive hypertension due to acute stroke will start IV fluids if eating okay will stop fluids (5) PAD (peripheral artery disease): Code(s): I73.9 - Peripheral vascular disease, unspecified Status: Acute Assessment and Plan: -the patient has had a fem-pop bypass surgery in the past. 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 Plan needs acute rehabilitation Subjective Date/time seen: 01/18/22 14:28 Interval history: This is a 61-year-old male patient with a history of hyperlipidemia, hypertension and peripheral artery disease.? The patient came to the emergency room for evaluation of right arm weakness and change in his speech.? This has been happening over the last 2 days.? The patient presented to [facility] initially on Friday and reports that when his blood pressure improved he felt much better patient's speech became better but he was still little bit weak on the right arm the patient felt improved and was not having any further difficulty and did not want to be transferred for here to [facility] at that time so he signed out AMA.? So overnight his symptoms worsened again and his right-sided arm weakness continued there for the patient came to the emergency room here at [facility].? The patient is already on Xarelto for a DVT.? The patient had as head CT today that shows new small acute lacunar infarct at the posterior left lentiform nucleus.? Stable appearance of an additional moderate scattered white matter hypoattenuation consistent with small vessel ischemic disease.? Chest x-ray was read as no acute cardiopulmonary disease.? Head and neck CTA was read as no large vessel occlusion.? 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 Periodontal disease and dental caries.? Paranasal sinus disease.? The patient was given an aspirin and hydralazine in the emergency room.? Neurology has been consulted.? The patient is being admitted to observation status on the date of service of
[2022-01-19] VITALS (10 sets, daily range): BP systolic 134–168; BP diastolic 68–86; PULSE 58–77; RESP 14–16; TEMP 36.1–36.7; O2SAT 96–97
[2022-01-19 05:53] LABS: Basophils Absolute Auto 0.1 K/mm3 (0.0-0.1); Eosinophils Absolute Auto 0.3 K/mm3 (0-0.3); Eosinophils Percent Auto 2.6 % (0-4.4); Hematocrit 48.5 % (42.0-52.0); Hemoglobin 17.3 g/dL (14.0-18.0); Immature Granulocyte Absolute 0.05 K/mm3 (0.00-0.031); Immature Granulocyte Percent A 0.5 % (0-0.5); Lymphocytes Absolute Auto 2.81 K/mm3 (0.9-3.2); Lymphocytes Percent Auto 25.7 % (18.3-44.2); Mean Corpuscular HGB Conc 35.7 g/dl (32-36); Mean Corpuscular Hemoglobin 32.2 pg (26-34); Mean Corpuscular Volume 90.1 fl (80-100); Mean Platelet Volume 9.4 fl (7.4-10.4); Monocytes Absolute Auto 1.1 K/mm3 (0.1-0.6); Monocytes Percent Auto 9.7 % (2.6-8.5); Neutrophils Absolute Auto 6.6 K/mm3 (1.3-6.7); Neutrophils Percent Auto 60.5 % (45.5-73.1); Platelet Count Result 276 k/mm3 (150-375); Red Blood Count 5.38 M/mm3 (4.6-6.20); Red Cell Distribution Width 11.9 % (11.5-14.5); White Blood Count 10.9 K/mm3 (4.5-10.0)
[2022-01-19 06:07] LABS: Alanine Aminotransferase 34 U/L (6-50); Albumin Level 4.6 g/dL (3.5-5.1); Alkaline Phosphatase 76 U/L (38-126); Anion Gap 13 mmol/L (8-16); Aspartate Amino Transferase 36 U/L (17-59); Bilirubin,Total 1.2 mg/dL (0.2-1.3); Blood Urea Nitrogen 14 mg/dL (9-20); Calcium 8.5 mg/dL (8.4-10.2); Carbon Dioxide 20 mmol/L (22-30); Chloride 104 mmol/L (98-107); Estimated CRCL calculation 82 ml/min; Estimated Glomerular Filt Rate > 60; Glucose 101 mg/dL (65-110); Potassium 3.8 mmol/L (3.4-5.0); Sodium 137 mmol/L (137-145)
[2022-01-19] MEDS: LORazepam (*CRX) 0.5 MG TABLET PO ×2 (09:11→20:38)
[2022-01-19] MEDS: ASPIRIN 81 MG ENTERIC TABLET PO (09:11)
[2022-01-19] MEDS: RIVAROXABAN 20 MG TABLET PO (09:11)
[2022-01-19] MEDS: ATORVASTATIN 40 MG TABLET 80 MG PO (09:11)
--- NOTE | 2022-01-19 15:47 | PM.IMPN ---
Progress Note: A&P Assessment and Plan (1) Acute CVA (cerebrovascular accident): Code(s): I63.9 - Cerebral infarction, unspecified Status: Acute Assessment and Plan: -PT and OT And ST evaluation neurology consulted On Xarelto Did receive aspirin yesterday. No aspirin or Plavix per Neurology Not a candidate for tPA as he is already on anticoagulation and out of window for treatment for CVA Associated right-sided hemiparesis expressive aphasia and dysphagia due to given acute stroke Needs acute inpatient rehabilitation started on aspirin 81 mg daily due to underlying history of hypertension/hyperlipidemia Echo with no thrombus or PFO EF 65-70% grade 1 diastolic dysfunction Head and neck CTA with no large vessel occlusion. 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 MRI brain could not be done due to leg stents (2) DVT (deep venous thrombosis): Code(s): I82.409 - Acute embolism and thrombosis of unspecified deep veins of unspecified lower extremity Status: Acute Assessment and Plan: -the the patient is on Xarelto which is continued (3) Dyslipidemia: Code(s): E78.5 - Hyperlipidemia, unspecified Status: Acute Assessment and Plan: -continue with atorvastatin after he has had his swallow study and if it is negative. Will check lipid profile He may need antiplatelet therapy as well due to his history of peripheral vascular disease placed on aspirin a day Atorvastatin increased to 80 mg daily LDL 172 gold less than 70 a1c 5.7 (4) Hypertension: Code(s): I10 - Essential (primary) hypertension Status: Acute Assessment and Plan: -p.r.n. hydralazine. hold blood pressure medication Allow permissive hypertension due to acute stroke will start IV fluids stopped fluids. (5) PAD (peripheral artery disease): Code(s): I73.9 - Peripheral vascular disease, unspecified Status: Acute Assessment and Plan: -the patient has had a fem-pop bypass surgery in the past. 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 Plan needs acute rehabilitation Subjective Date/time seen: 01/19/22 15:47 Interval history: This is a 61-year-old male patient with a history of hyperlipidemia, hypertension and peripheral artery disease.? The patient came to the emergency room for evaluation of right arm weakness and change in his speech.? This has been happening over the last 2 days.? The patient presented to [facility] initially on Friday and reports that when his blood pressure improved he felt much better patient's speech became better but he was still little bit weak on the right arm the patient felt improved and was not having any further difficulty and did not want to be transferred for here to [facility] at that time so he signed out AMA.? So overnight his symptoms worsened again and his right-sided arm weakness continued there for the patient came to the emergency room here at [facility].? The patient is already on Xarelto for a DVT.? The patient had as head CT today that shows new small acute lacunar infarct at the posterior left lentiform nucleus.? Stable appearance of an additional moderate scattered white matter hypoattenuation consistent with small vessel ischemic disease.? Chest x-ray was read as no acute cardiopulmonary disease.? Head and neck CTA was read as no large vessel occlusion.? 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 Periodontal disease and dental caries.? Paranasal sinus disease.? The patient was given an aspirin and hydralazine in the emergency room.? Neurology has been consulted.? The patient is being admitted to obser
[2022-01-20] VITALS (9 sets, daily range): BP systolic 131–154; BP diastolic 76–84; PULSE 68–92; RESP 14–20; TEMP 36.2–36.3; O2SAT 97–99
--- NOTE | 2022-01-20 01:11 | PC.NURSE ---
Daylight Savings Time For Daylight Savings Time Ending in the Fall - Clocks are moved back. For Daylight Savings Time Beginning in the Spring - Clocks are moved ahead. For [facility], the time of change occurs at 0200 hrs. Time is taken from the server service assistant. This entry on the patient's chart recognizes the change in time reflected during documentation. Example: 2 entries for vital signs may be charted for 0200 hrs.
[2022-01-20] MEDS: ATORVASTATIN 40 MG TABLET 80 MG PO (08:43)
[2022-01-20] MEDS: ASPIRIN 81 MG ENTERIC TABLET PO (08:43)
[2022-01-20] MEDS: LORazepam (*CRX) 0.5 MG TABLET PO ×2 (08:43→21:39)
[2022-01-20] MEDS: RIVAROXABAN 20 MG TABLET PO (08:43)
--- NOTE | 2022-01-20 13:27 | PM.IMPN ---
Progress Note: A&P Assessment and Plan (1) Acute CVA (cerebrovascular accident): Code(s): I63.9 - Cerebral infarction, unspecified Status: Acute Assessment and Plan: -PT and OT And ST evaluation neurology consulted On Xarelto Did receive aspirin yesterday. No aspirin or Plavix per Neurology Not a candidate for tPA as he is already on anticoagulation and out of window for treatment for CVA Associated right-sided hemiparesis expressive aphasia and dysphagia due to given acute stroke Needs acute inpatient rehabilitation started on aspirin 81 mg daily due to underlying history of hypertension/hyperlipidemia Echo with no thrombus or PFO EF 65-70% grade 1 diastolic dysfunction Head and neck CTA with no large vessel occlusion. 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 MRI brain could not be done due to leg stents (2) DVT (deep venous thrombosis): Code(s): I82.409 - Acute embolism and thrombosis of unspecified deep veins of unspecified lower extremity Status: Acute Assessment and Plan: -the the patient is on Xarelto which is continued (3) Dyslipidemia: Code(s): E78.5 - Hyperlipidemia, unspecified Status: Acute Assessment and Plan: -continue with atorvastatin after he has had his swallow study and if it is negative. Will check lipid profile He may need antiplatelet therapy as well due to his history of peripheral vascular disease placed on aspirin a day Atorvastatin increased to 80 mg daily LDL 172 gold less than 70 a1c 5.7 (4) Hypertension: Code(s): I10 - Essential (primary) hypertension Status: Acute Assessment and Plan: -p.r.n. hydralazine. hold blood pressure medication Allow permissive hypertension due to acute stroke will start IV fluids stopped fluids. (5) PAD (peripheral artery disease): Code(s): I73.9 - Peripheral vascular disease, unspecified Status: Acute Assessment and Plan: -the patient has had a fem-pop bypass surgery in the past. 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 Plan needs acute rehabilitation awaiting approval Subjective Date/time seen: 01/20/22 13:27 Interval history: This is a 61-year-old male patient with a history of hyperlipidemia, hypertension and peripheral artery disease.? The patient came to the emergency room for evaluation of right arm weakness and change in his speech.? This has been happening over the last 2 days.? The patient presented to [facility] initially on Friday and reports that when his blood pressure improved he felt much better patient's speech became better but he was still little bit weak on the right arm the patient felt improved and was not having any further difficulty and did not want to be transferred for here to [facility] at that time so he signed out AMA.? So overnight his symptoms worsened again and his right-sided arm weakness continued there for the patient came to the emergency room here at [facility].? The patient is already on Xarelto for a DVT.? The patient had as head CT today that shows new small acute lacunar infarct at the posterior left lentiform nucleus.? Stable appearance of an additional moderate scattered white matter hypoattenuation consistent with small vessel ischemic disease.? Chest x-ray was read as no acute cardiopulmonary disease.? Head and neck CTA was read as no large vessel occlusion.? 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 Periodontal disease and dental caries.? Paranasal sinus disease.? The patient was given an aspirin and hydralazine in the emergency room.? Neurology has been consulted.? The patient is bein
[2022-01-20 18:38] LABS: Glucose Point of Care 188 mg/dl (65-105)
--- NOTE | 2022-01-20 19:25 | P.PNCROSS_ITS ---
Event Note Event Note Event Note: I received a call from Dr. Dial a little after 19:00 asking me to please ev aluate the patient as he was off shift for the day. The patient's fiancee called staff into the room with reports of new left-sided facial droop, left-sided weakness, and worsening dysarthria. Stat brain CT showed evolution/extends in of the known acute left basal ganglia infarct. CT of the head and neck showed no large vessel occlusion and stable congenital appearing left distal vertebral artery narrowing. On my examination the patient had a right-sided facial droop and dense right hemiplegia with garbled speech and expressive aphasia. No left- sided deficits were noted, specifically he had good strength in his left upper and lower extremity with no evidence of left-sided facial droop. He had a regular rate and rhythm. Peripheral pulses were intact. Results of the imaging studies were discussed with the patient and his fiancee at bedside. Chart was reviewed and case was discussed with both Dr. Dial and Dr. Chandler. Aside from the evolution of the previous stroke, there is no evidence of new stroke or large vessel disease which could be amenable to intervention. Dr. Chandler recommends dexamethasone. The patient will remain on aspirin 81 milligrams daily and rivaroxaban 20 milligrams daily. 35 minutes was spent reviewing the patient's chart, discussing with nurse and specialist, and discussing findings and treatment plan with patient and fiancee.
[2022-01-20] MEDS: DEXAMETHASONE SOD PHOS INJ 4 MG/ML VIAL IV PUSH (20:34)
[2022-01-20] MEDS: PANTOPRAZOLE SODIUM IV 40 MG VIAL IV PUSH (20:34)
[2022-01-20] MEDS: HYDROcodone/acetaminophen (*CRX) 5-325 MG TABLET 1 TAB PO (21:40)
[2022-01-21] VITALS (7 sets, daily range): BP systolic 143–145; BP diastolic 71–84; PULSE 63–86; RESP 18–24; TEMP 36.3–36.7; O2SAT 95–98
[2022-01-21] MEDS: DEXAMETHASONE SOD PHOS INJ 4 MG/ML VIAL IV PUSH ×3 (05:48→17:34)
[2022-01-21 06:28] LABS: Basophils Absolute Auto 0.1 K/mm3 (0.0-0.1); Basophils Percent Auto 0.5 % (0.2-1.2); Eosinophils Percent Auto 0.1 % (0-4.4); Hematocrit 51.2 % (42.0-52.0); Hemoglobin 17.6 g/dL (14.0-18.0); Immature Granulocyte Absolute 0.05 K/mm3 (0.00-0.031); Immature Granulocyte Percent A 0.5 % (0-0.5); Lymphocytes Absolute Auto 1.58 K/mm3 (0.9-3.2); Mean Corpuscular HGB Conc 34.4 g/dl (32-36); Mean Corpuscular Hemoglobin 32.1 pg (26-34); Mean Corpuscular Volume 93.4 fl (80-100); Mean Platelet Volume 10.2 fl (7.4-10.4); Monocytes Absolute Auto 0.5 K/mm3 (0.1-0.6); Monocytes Percent Auto 4.9 % (2.6-8.5); Neutrophils Absolute Auto 8.3 K/mm3 (1.3-6.7); Platelet Count Result 318 k/mm3 (150-375); Red Blood Count 5.48 M/mm3 (4.6-6.20); Red Cell Distribution Width 11.9 % (11.5-14.5); White Blood Count 10.5 K/mm3 (4.5-10.0)
[2022-01-21 06:34] LABS: Alanine Aminotransferase 38 U/L (6-50); Albumin Level 4.6 g/dL (3.5-5.1); Alkaline Phosphatase 66 U/L (38-126); Anion Gap 16 mmol/L (8-16); Aspartate Amino Transferase 40 U/L (17-59); Bilirubin,Total 0.8 mg/dL (0.2-1.3); Blood Urea Nitrogen 20 mg/dL (9-20); Calcium 8.6 mg/dL (8.4-10.2); Carbon Dioxide 22 mmol/L (22-30); Chloride 102 mmol/L (98-107); Estimated CRCL calculation 73 ml/min; Estimated Glomerular Filt Rate > 60; Glucose 127 mg/dL (65-110); Magnesium 2.1 mg/dL (1.6-2.3); Sodium 140 mmol/L (137-145)
[2022-01-21] MEDS: PANTOPRAZOLE SODIUM IV 40 MG VIAL IV PUSH (08:24)
[2022-01-21] MEDS: ASPIRIN 81 MG ENTERIC TABLET PO (08:25)
[2022-01-21] MEDS: RIVAROXABAN 20 MG TABLET PO (08:25)
[2022-01-21] MEDS: ATORVASTATIN 40 MG TABLET 80 MG PO (08:25)
--- NOTE | 2022-01-21 14:31 | PM.DS ---
DS: Admitting Diagnosis Discharge Date 01/21/2022 Admitting Diagnosis right sided weakness DS: Discharge Diagnosis Discharge Diagnosis (1) Acute CVA (cerebrovascular accident): Code(s): I63.9 - Cerebral infarction, unspecified Status: Acute (2) DVT (deep venous thrombosis): Code(s): I82.409 - Acute embolism and thrombosis of unspecified deep veins of unspecified lower extremity Status: Acute (3) Dyslipidemia: Code(s): E78.5 - Hyperlipidemia, unspecified Status: Acute (4) Hypertension: Code(s): I10 - Essential (primary) hypertension Status: Acute (5) PAD (peripheral artery disease): Code(s): I73.9 - Peripheral vascular disease, unspecified Status: Acute (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 And ST evaluation ?neurology consulted On Xarelto he was given aspirin And will continue 81 mg aspirin daily. Not a candidate for tPA as he is already on anticoagulation and out of window for treatment for CVA Associated right-sided hemiparesis expressive aphasia and dysphagia due to given acute stroke ?started on aspirin 81 mg daily due to underlying history of hypertension/hyperlipidemia Echo with no thrombus or PFO EF 65-70% grade 1 diastolic dysfunction Head and neck CTA with no large vessel occlusion.? 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 MRI brain could not be done due to leg stents # transient left-sided facial droop and weakness 01/21/2022: Repeat CT head with left internal capsule stroke which is already known. CTA with no other acute findings. The left-sided facial droop and weakness resolved spontaneously # chronic DVT on Xarelto # hyperlipidemia: He may need antiplatelet therapy as well due to his history of peripheral vascular disease ?placed on aspirin a day Atorvastatin increased to 80 mg daily LDL 172 gold less than 70 a1c 5.7 # hypertension: Initially blood pressure medication were held. To allow permissive hypertension. Resume ramipril at discharge # peripheral artery disease: -the patient has had a fem-pop bypass surgery in the past. # history thrombophilia due to dysfibrinogenemia: -the patient has a history of DVT and is on Xarelto. Time Spent with Patient Time attestation: Total time spent providing and/or coordinating discharge services:45 mins Exam Narrative: APPEARANCE: well looking, not in acute distress HEAD: normocephalic, atraumatic. EYES: PERRLA/EOMI, conjunctivae clear. NOSE: Normal no drainage NECK: Supple. No adenopathy, no masses. RESPIRATORY: Airway patent, respirations nonlabored. Clear to auscultation bilaterally, no rales, rhonchi, wheezing. CARDIOVASCULAR: Regular rate and rhythm without murmurs rubs or gallops. ABDOMINAL: Soft, nontender, nondistended, normal bowel sounds MUSCULOSKELETAL: no edema cyanosis or clubbing NEURO: Alert. facial asymmetry noted. Right-sided hemiplegia. Arm more than legs SKIN: Warm, dry. Normal Color DS: Data Data Completed and Pending Completed studies during hospitalization: Exam Type: ? ? CA echo doppler w bubble study Study Info Indications ?? ? - STROKE Complete two-dimensional, color flow and Doppler transthoracic echocardiogram is performed. Account #: ? ? [id number] Contrast/Agitated Saline Contrast/Ag. Saline: ? ? Agitated Saline Amount: ? ? 20.00 ml Administered By: ? ? Reji,? Germaine ALAMO Existing IV Access: ? ? Yes IV Access Condition: ? ? patent with no signs of infiltration Summary ? 1. Complete two-dimensional, color flow and Doppler transthoracic echocardi
== END 2022-01-21 18:00 | DRG 45 ==
LOC: ANHED 18:10 → ANH3MEDSUR 18:30
PROVIDERS: Emergency Medicine; Nurse Practitioner; Admitting Provider Family Medicine; Emergency Provider Emergency Medicine; PCP Internal Medicine; Visit Provider Internal Medicine
DX: I63.81 Other cerebral infarction due to occlusion or stenosis of small artery (principal); D68.69 Other thrombophilia; G81.01 Flaccid hemiplegia affecting right dominant side; D68.2 Hereditary deficiency of other clotting factors; G81.94 Hemiplegia, unspecified affecting left nondominant side; R13.10 Dysphagia, unspecified; R47.01 Aphasia; I10 Essential (primary) hypertension; I73.9 Peripheral vascular disease, unspecified; E78.5 Hyperlipidemia, unspecified; K05.6 Periodontal disease, unspecified; K02.9 Dental caries, unspecified; R29.810 Facial weakness; F17.210 Nicotine dependence, cigarettes, uncomplicated; R29.702 NIHSS score 2; Z79.01 Long term (current) use of anticoagulants; Z79.899 Other long term (current) drug therapy; Z20.822 Contact with and (suspected) exposure to COVID-19; Z95.1 Presence of aortocoronary bypass graft; Z80.0 Family history of malignant neoplasm of digestive organs; Z80.8 Family history of malignant neoplasm of other organs or systems; Z86.73 Personal history of transient ischemic attack (TIA), and cerebral infarction without residual deficits
CPT/HCPCS: 36415; 70450; 70496; 70498; 71045; 80053; 80061; 82728; 82948; 83036; 83605; 83690; 83735; 84443; 84484; 85025; 85610; 85730; 92507; 92523; 92526; 92610; 93005; 93306; 96374; 96375; 96376; 97110; 97162; 97166; 97530; 99285; A4565; A9270; C9113; G0378; G0379; J0360; J1100; J2060; J7030; Q9967; U0003; U0005

== ENCOUNTER 2022-04-25 11:00 | Outpatient (RCR) | payer OTHER, SELFPAY ==
--- NOTE | 2022-02-12 15:55 | STOPEVAL1 ---
Assessment and note entered by Laura Bojorquez [employer] Evaluation Information Assessment Status Evaluation Diagnosis 2 CVA's Onset 01/16/22 Subjective Information Patient reports he had a CVA with fine motor deficits; he went to the [facility] but went home when there was a delay for a bed; he stated that two days later he awoke with increasing difficulty and called an ambulance who brought him to [facility]. He was here for two days and then was transferred to [facility] ([facility]) where he remained for three weeks. He reports he had Speech Therapy; he states that Speech Therapy gave him tongue twisters and games, and he really wanted to focus on improving his arm and leg. Upon review of inpatient chart, he was at [place] for five days. Reported Pain Level Pain Score 0: Self Report Assessment ST Clinical Summary SPEECH EVALUATION This patient suffered a CVA on 01/16/22 resulting in moderate dysarthria along with right-sided upper and lower extremity weakness. Patient reports he feels that his speech has improved since attending [facility], however he realizes that his speech remains slurred. Today, he was assessed and found to have moderate labial and lingual weakness contributing to moderate dysarthria characterized as intelligible speech but imprecise consonant productions. Patient will continue in Speech Therapy twice weekly for four weeks to address increasing the strength of the articulators and speech sound precision. Patient voiced understanding of plan of care and is agreeable to continuing outpatient Speech Therapy. Thank you for this referral. Plan of Care Interventions Treatment of Speech ST Services Indicated Yes Treatment Frequency and 2xweek/4 weeks. Duration These treatments will address the objective and functional deficits as defined above. The patient will be advanced safely and appropriately in order for the patient to progress towards his/her prior level of function. Additional exercises will be introduced and as well as a comprehensive home exercise program upon discharge, if needed, ?to ensure carryover of functional gains achieved in the clinic. This treatment plan has been reviewed and agreement upon by the patient.
--- NOTE | 2022-02-13 08:28 | BUPTOPEVAL1 ---
Assessment and note entered by Mitzi Del Real PT Evaluation Information Assessment Status Evaluation Diagnosis CVA Onset 01/16/22 Subjective Information Pt reports he just returned home from Rehab last Friday. Pt's main goal is to ambulate again. Reported Pain Level Pain Score 0: Self Report Assessment PT Clinical Summary Pt evaluated this date for CVA resulting in R UE and R LE weakness. Pt's R UE brace donned prior to start of session, but noted to be improperly donned and correctly adjusted. Pt has a R AFO due to having R foot drop and using a L arch support in shoe. Pt is independent in wheelchair propulsion/management using L UE/LE. Pt able to ambulate with Small base quad cane, but requiring constant safety cues and demo multiple gait deficits including vaulting gait pattern (likely due to minimal hip/knee flexion). Pt educated and trained on use of a platform walker, but continues to demo gait instability. Pt requiring assist to transfer from all surfaces including wheelchair due to falling/diving for seat. Pt at high risk of falling Per Tinetti balance test and TUG assessment. Pt demo 1 major loss of balance due to impulsivity. Pt demo difficulty with ability to safely transfer in/out of bed requiring assist/ safety cues. Pt's HEP reviewed/assessed with therapist and pt demo back to therapist to ensure correct technique was being used. Pt main goal is to ambulate again. Pt will benefit from skilled therapy for normalizing gait mechanics, assistive device (least restrictive) training with gait/ transfers, improve safety of transfers, improve bed mobility, improve trunk control in standing position, reduce risk of falling and increase overall safety awareness. Plan of Care Interventions Aquatic Therapy,Check Out for Orthotic/Pr, Electrical Stimulation,Gait Training,Hot Pack/Cold Pack,Manual Therapy,Neuro Re-education,Patient/ Caregiver Educati,Therapeutic Activities, Therapeutic Exercise,Ultrasound,Wheelchair Training PT Services Indicated Yes Treatment Frequency and 2x/week for 4 weeks Duration These treatments will address the objective and functional deficits as defined above. The patient will be advanced safely and appropriately in order for the patient to progress towards his/her prior level of function. Additional exercises ara
[2022-02-19 13:35] VITALS: BP_SYST 155
--- NOTE | 2022-02-19 14:57 | OTOPEVAL1 ---
Assessment and note entered by JT Sorto/Melvina Evaluation Information Assessment Status Evaluation Diagnosis CVA Onset 01/20/2022 Subjective Information Patient had a CVA on 01/20/2022 with residual deficits to R side. Patient has spent x3 weeks at the rehab institute in [place] for rehab prior to returning home. Patient reports does not have any movement of R UE but is able to feel arm. Patient reports a goal with therapy is to try to get any movement back into arm. Reported Pain Level Pain Score 0: Self Report Assessment OT Clinical Summary Maurice is a 61 year old R hand dominant male who presents to Outpatient OT following a CVA resulting in R UE weakness. Patient currently demonstrates strength of R UE, is able to perform passive ROM WNL. Patient would benefit from skilled OT for HEP instruction, neuro re- education, UE exercises, modalities for optimal use of R UE for functional and daily tasks. Plan of Care Interventions Therapeutic Exercise,Manual Therapy,Neuro Re- education,Therapeutic Activities,Electrical Stimulation,Self-Care/Home Management OT Services Indicated Yes Treatment Frequency and 1-2x/wk, 4 weeks Duration These treatments will address the objective and functional deficits as defined above. The patient will be advanced safely and appropriately in order for the patient to progress towards his/her prior level of function. Additional exercises will be introduced and as well as a comprehensive home exercise program upon discharge, if needed, ?to ensure carryover of functional gains achieved in the clinic. This treatment plan has been reviewed and agreement upon by the patient.
--- NOTE | 2022-03-14 13:34 | OTOPPROG ---
Assessment and note entered by JT Sorto/Melvina Evaluation Information Assessment Status Progress Diagnosis CVA Onset 01/20/2022 Subjective Information Patient had a CVA on 01/20/2022 with residual deficits to R side. Patient has spent x3 weeks at [facility] in [place] for rehab prior to returning home. Patient since beginning of therapy patient reports R UE has not responded great and there is still no movement in R UE. Patient reports frustration with R UE and limited movement. Patient reports is occasionally able to move R UE with yawning. Assessment OT Clinical Summary Maurice is a 61 year old R hand dominant male who presents to Outpatient OT following a CVA resulting in R UE weakness. Patient continues to demonstrates decreased strength of R UE, has passive ROM WNL. Patient demonstrated improvement with muscle strength of shoulder retraction. Patient would benefit from continued skilled OT for HEP instruction, neuro re-education, UE exercises, modalities for optimal use of R UE for functional and daily tasks. Plan of Care Interventions Therapeutic Exercise,Manual Therapy,Neuro Re- education,Therapeutic Activities,Electrical Stimulation,Self-Care/Home Management,Aquatic Therapy OT Services Indicated Yes Treatment Frequency and 2x/week, 6 weeks Duration These treatments will address the objective and functional deficits as defined above. The patient will be advanced safely and appropriately in order for the patient to progress towards his/her prior level of function. Additional exercises will be introduced and as well as a comprehensive home exercise program upon discharge, if needed, ?to ensure carryover of functional gains achieved in the clinic. This treatment plan has been reviewed and agreement upon by the patient.
--- NOTE | 2022-03-14 14:37 | STOPPROG ---
Assessment and note entered by Laura Bojorquez [employer] Evaluation Information Assessment Status Evaluation Assessment Status Progress Diagnosis Dysarthria Onset 01/20/22 Subjective Information Patient reports that he feels his speech is better than it was, however he stated, I'd like to talk normal. Additionally, he stated, To me, I sound funny. Patient reports he is interested in continuing Speech Therapy to further improve his speech and to be able to talk somewhat faster than he feels he has to speak now as he stated, he has to speak more slowly in order to be clear. Assessment ST Clinical Summary PROGRESS NOTE AND RE-EVALUATION This patient was seen for a re-evaluation of his speech following CVA 01/20/22 and after discharge from Rehab. He has had five Speech Therapy visits. Patient has exhibited mild improvement in both labial/lingual sound precision however he continues to exhibit mild imprecise productions or sound omissions of lingual tip sounds including / s/ and /s/ blends such as iniitial /st/ and medial x as in sixty. Additionally, he exhibits slow rate of speech and when using a metronome to increase his rate of productions, his speech sound precision decreases and he exhibits the need to stop and think about how to say words. Patient will continue in Speech Therapy two times weekly for two weeks with re-assessment of progress with focus on increasing rate of speech while maintaining speech sound precision. Plan of Care Interventions Treatment of Speech ST Services Indicated Yes These treatments will address the objective and functional deficits as defined above. The patient will be advanced safely and appropriately in order for the patient to progress towards his/her prior level of function. Additional exercises will be introduced and as well as a comprehensive home exercise program upon discharge, if needed, ?to ensure carryover of functional gains achieved in the clinic. This treatment plan has been reviewed and agreement upon by the patient.
--- NOTE | 2022-04-04 12:55 | STOPDC ---
Assessment and note entered by SHASHANK Turner Evaluation Information Assessment Status Discharge Reported Pain Level Pain Score 0: Self Report Pain Score 4: Self Report Pain Score 6: Self Report Assessment ST Clinical Summary The patient reports he is ready to discharge and has been talking about discharging this date for this week and during last week's sessions. Patient indicates that he feels his speech intelligibility is doing pretty good, and that he has not noticed anyone asking him to repeat himself for several weeks. Patient has been seen a total of nine sessions focusing on labial and lingual strength, speech sound precision, and improving the rate of his speech as his slower- than-normal rate of movement affects his overall intelligibility. Patient has indicated that he does not practice on home exercise and word/ sentence oral reading tasks as much as was recommended; at the same time, patient has achieved all goals and is being discharged at this time.
--- NOTE | 2022-04-16 11:57 | PCPTNOTE ---
Patient called & cancelled scheduled appointment this date due to cold weather.
--- NOTE | 2022-04-25 12:08 | OTOPPROG ---
Assessment and note entered by Aly Dick, JT/Melvina, CHT Evaluation Information Assessment Status Progress Diagnosis CVA Onset 01/20/2022 Subjective Information Patient reporting progress in the right UE. Notes improved muscle tone and is now able to hold the arm up when standing vs. letting it hang , which has been very painful to the shoulder. He has much better posture and UE awareness when walking and transferring. He is now able to reach the hand to his chin/face, however his order selector is limited, so being able to bring a wash cloth to the face or a utensil is very limited. He reports reduced shoulder pain when getting dressed - stating the arm doesn't get jerked around and he is able to stabilize the shoulder so the glenohumeral joint is not pulled around. Functionally he is now able to actively abduct the arm far enough to don deodorant. He continues to be unable to bring a utensil to his mouth or reach to grasp for objects . These motions are slowly improving and integrating. Assessment OT Clinical Summary Maurice has been participating in outpatient OT for right UE weakness s/p CVA x13 sessions. In the past few weeks the patient has began to have active motion returning in the right UE. In the last assessment the right UE was measuring at 0/5 muscle grade. The shoulder has progressed to 2/5, the elbow has progressed to 4+/5, wrist flexion has progressed to 3+/5, and wrist extension to 1/5 . He is now gripping 8 lbs. Shoulder subluxation is reducing and so is his shoulder pain. Continued skilled OT indicated to progress exercises and HEP, continue neuromuscular re-education, use of e -stim, strengthening, and we will begin aquatic therapy this round. He will benefit from aquatic therapy for the benefits of buoyancy and resistance of the water. Plan of Care Interventions Therapeutic Exercise,Neuro Re-education, Therapeutic Activities,Electrical Stimulation, Aquatic Therapy OT Services Indicated Yes Treatment Frequency and 2x/week for 6 weeks: Duration 1x/week land 1x/week aquatic These treatments will address the objective and functional deficits as defined above. The patient will be advanced safely and appropriately in order for the patient to progress towards his/her prior level of funct
--- NOTE | 2022-04-29 10:19 | OTOPDC ---
Assessment and note entered by Aly Dick, OTR/L, CHT Evaluation Information Assessment Status Discharge - Pt Not Present OT Summary Patient called today to cancel all of his appointments as he has decided to go to a therapy clinic closer to home. Please refer to recent progress note sent 04/25/22 for most recent update on patient. Discharging today per patient request.
--- NOTE | 2022-04-29 11:45 | PTOPDC ---
Assessment and note entered by Noam Love, PT Evaluation Information Assessment Status Discharge - Pt Not Presents Diagnosis CVA Onset 01/16/22 Subjective Information Pt states he is now able to go up and down steps into home and doesn't need his wheel chair to transfer to car any longer. Reports he feels 30% improved compared to initial evaluation, most significant difficulty with RUE Reports is doing first time wearing right knee brace to assist in stability with walking Assessment PT Clinical Summary Patient called today and cancelled all outstanding appointments as he has decided to go to a clinic closer to home. Please refer to recent progress note on 04/25/22 for most recent update on patient. Discharging today per patient's request.
== END 2022-04-30 08:38 | disposition home or self-care (01) ==
LOC: ANHOT 11:00
PROVIDERS: PCP Internal Medicine
DX: I69.351 Hemiplegia and hemiparesis following cerebral infarction affecting right dominant side (principal); I63.89 Other cerebral infarction; R26.89 Other abnormalities of gait and mobility
CPT/HCPCS: 92507; 92523; 97014; 97110; 97112; 97116; 97161; 97165; 97530; G0283

== ENCOUNTER 2023-03-25 09:00 | Outpatient (RCR) | payer OTHER, SELFPAY ==
--- NOTE | 2023-02-05 15:35 | OTOPEVAL1 ---
Assessment and note entered by Aly Dick, OTMere/Melvina, CHT Evaluation Information Assessment Status Evaluation Diagnosis h/o CVA, spastic hemiplegia, spasticity due to old stroke Subjective Information Patient had a CVA 01/20/22, which affected his right, dominant side. He did a round of therapy after his stroke, but started to notice his hand would clench up when doing his exercises. He received botox injections about 2 weeks ago, which he reports has helped relax the hand. Functionally he is able to bathe and dress himself independently. He is not able to use the right hand to feed himself or wash his face. Reported Pain Level Pain Score 0: Self Report Assessment OT Clinical Summary Patient referred to OT with decline in right UE use due to deficits with spasticity and weakness s /p CVA. Skilled OT indicated to facilitate improved functional flexibility, strength, and use of the right UE through therapeutic exercise, HEP education, aquatic therapy, modalities, and adaptive ADL education to maximize functional use of the right UE. Plan of Care Interventions Therapeutic Exercise,Manual Therapy,Therapeutic Activities,Hot Pack/Cold Pack,Electrical Stimulation,Aquatic Therapy OT Services Indicated Yes Treatment Frequency and 2x/week for 5 weeks: Duration 1x/week land 1x/week aquatic These treatments will address the objective and functional deficits as defined above. The patient will be advanced safely and appropriately in order for the patient to progress towards his/her prior level of function. Additional exercises will be introduced and as well as a comprehensive home exercise program upon discharge, if needed, ?to ensure carryover of functional gains achieved in the clinic. This treatment plan has been reviewed and agreement upon by the patient.
--- NOTE | 2023-02-05 15:36 | OPREHPOC ---
Outpatient Therapy Plan of Care This is a Multidisciplinary Plan of Care that may contain components documented by all disciplines (PT, OT, and ST.) OT Problem 1 OT Problem #1 Knowledge Deficit OT Goal 1 Goal 1. Patient to be independent with instructed materials. Target Visit 11 OT Problem 2 OT Problem #2 Impaired Coordination OT Goal 1 Goal 1. Patient to improve gross motor coordination for functional reaching tasks as demonstrated by being able to reach forward and grasp a cone from table-height. Target Visit 11 OT Problem 3 OT Problem #3 Impaired Flexibility OT Goal 1 Goal 1. Improve functional (R) shoulder active ROM as demonstrated by: - improving flexion to 50 degrees - improving ER to be able to reach the back of his head OT Problem 4 OT Problem #4 Impaired Strength OT Goal 1 Goal 1. Improve functional finger extension strength to 3+/5 to improve functional plant accountant and release on objects for improved independence with ADLs. Target Visit 11
--- NOTE | 2023-03-25 09:54 | OTOPDC ---
Assessment and note entered by Aly Dick, OTMere/Melvina, CHT Discharge Summary 03/25/23 Diagnosis h/o CVA, spastic hemiplegia, spasticity due to old stroke Subjective Information Patient reports noticing progress since starting therapy 6 weeks ago. He states his hand has more movement and he feels more flexible. He reports he has learned a lot about what he needs to continue to work on. He joined the local [facility] and is going to continue aquatic therapy on his own. He reports his shoulder subluxation isn't as painful and he isn't relying on taping the shoulder like he was a few months ago. Assessment OT Clinical Summary Patient referred to OT with decline in right UE use due to deficits with spasticity and weakness s /p CVA. Patient has made progress with therapy with improved flexibility and reduced shoulder pain. He demonstrates excellent understanding of all materials and plans to continue his HEP and he also joined a gym to continue aquatic workouts. At this time we are going to discharge with HEP with the goal of patient continuing to make progress and return for therapy to progress his HEP.
== END 2023-03-25 10:25 | disposition home or self-care (01) ==
LOC: ANHOT 09:00
PROVIDERS: PCP Internal Medicine; Visit Provider Nurse Practitioner Gerontology
DX: G81.10 Spastic hemiplegia affecting unspecified side (principal); I69.398 Other sequelae of cerebral infarction; R25.2 Cramp and spasm
CPT/HCPCS: 97110; 97113; 97165

== ENCOUNTER 2024-01-09 10:00 | Outpatient (RCR) | payer MEDICARE, MEDICAID, SELFPAY ==
--- NOTE | 2023-10-17 16:01 | OTOPEVAL1 ---
Assessment and note entered by Aly Dick, JT/Melvina, CHT Evaluation Information Assessment Status Evaluation Diagnosis Right spastic hemiplegia Subjective Information Patient has right UE spastic hemiplegia from CVA 01/21/24. He receives Botox injections to help reduce his spasticity and he reports this helps keep his hand relaxed. He has been working on his flexibility, using his left UE to stretch the right UE. He states he used to have to tape his shoulder all the time, but he hasn't needed to due to improved strength and having less pain in the shoulder. He states he has been trying to use his arm for more tasks, stating he can now hold a pill bottle in his right hand and use his left to open the lid. He states he tries to use his arm to grab objects all the time . He is very fearful of his hand getting tight and being unable to open it again. Assessment OT Clinical Summary Patient referred to OT with dx of spastic hemiplegia of the right UE s/p CVA. He presents with tightness, tone, and spasticity that restricts functional use, such as reaching and grasp/release. He is very motivated and has maintained his flexibility since his CVA in 2021. He just received a round of Botox injections and is ready for another round of therapy to help improve functional use of the right UE. Skilled OT indicated to maximize functional strength and use via therapeutic exercise, HEP instruction/ progression, stretching, weight bearing, and aquatic therapy. Therapeutic benefits of the pool for this patient include temperature (warmth to reduce tightness and tone), buoyancy (reduces the weight of gravity), and resistance (water as resistance). Plan of Care Interventions Therapeutic Exercise,Manual Therapy,Neuro Re- education,Therapeutic Activities,Hot Pack/Cold Pack,Electrical Stimulation,Aquatic Therapy OT Services Indicated Yes Treatment Frequency and 1-2x/week for 10 visits Duration These treatments will address the objective and functional deficits as defined above. The patient will be advanced safely and appropriately in order for the patient to progress towards his/her prior level of function. Additional exercises will be introduced and as well as a comprehensive home exercise program upon discharge, if needed, ?to ensure carryover of functional gains achieved in the clinic. This treatment plan has been reviewed and agreement upon by the patient.
--- NOTE | 2023-10-17 16:01 | OPREHPOC ---
Outpatient Therapy Plan of Care This is a Multidisciplinary Plan of Care that may contain components documented by all disciplines (PT, OT, and ST.) OT Problem 1 OT Problem #1 Knowledge Deficit OT Goal 1 Goal 1. Patient to be independent with instructed materials. Target Visit 10 OT Problem 2 OT Problem #2 Impaired Strength OT Goal 1 Goal Improved functional strength of the right UE as demonstrated by: 1. Improved functional shoulder flexion to facilitate improve forward reach during ADLs to 80 degrees. 2. Improved functional finger extension strength as demonstrated by being able to open his hand enough to orthopedic podiatrist and release large cone (7 cm diameter). 3. Improved right orthopedic podiatrist strength to 45 lbs. Target Visit 10 OT Problem 3 OT Problem #3 Impaired Flexibility OT Goal 1 Goal Improved flexibility of the (R) shoulder: 1. Improved external rotation to be able to touch the right hand to the back of his head. 2. Improved internal rotation to be able to touch the left hand to his right buttocks.
--- NOTE | 2023-11-24 14:48 | OTOPPROG ---
Assessment and note entered by Aly Dick, JT/Melvina, CARLOST OT Progress Update 11/24/23 Assessment Status Progress Diagnosis Right spastic hemiplegia Subjective Information Patient reports feeling progress in the right UE since start of care. He reports his flexibility feels better and his strength feels better. He states he likes the pool, it allows for more motion vs. motion against gravity. He is compliant with HEP for stretching and strengthening of the right UE. Assessment OT Clinical Summary Patient referred to OT with dx of spastic hemiplegia of the right UE s/p CVA. He has been participating in aquatic and land therapy sessions with the focus on improving right UE flexibility, strength, and functional use. He presents with improvements in flexibility and strength. Functional grasp and release continues to be limited by tone, however. He continues to be very motivated and compliant with all materials. Continued skilled OT indicated to maximize functional strength and use via therapeutic exercise, HEP instruction/progression, stretching, weight bearing, and aquatic therapy. Therapeutic benefits of the pool for this patient include temperature (warmth to reduce tightness and tone), buoyancy (reduces the weight of gravity), and resistance (water as resistance). Plan of Care Interventions Therapeutic Exercise,Manual Therapy,Neuro Re- education,Therapeutic Activities,Hot Pack/Cold Pack,Electrical Stimulation,Aquatic Therapy OT Services Indicated Yes Treatment Frequency and 2x/week for 10 visits Duration These treatments will address the objective and functional deficits as defined above. The patient will be advanced safely and appropriately in order for the patient to progress towards his/her prior level of function. Additional exercises will be introduced and as well as a comprehensive home exercise program upon discharge, if needed, ?to ensure carryover of functional gains achieved in the clinic. This treatment plan has been reviewed and agreement upon by the patient.
--- NOTE | 2023-11-24 14:49 | OPREHPOC ---
Outpatient Therapy Plan of Care This is a Multidisciplinary Plan of Care that may contain components documented by all disciplines (PT, OT, and ST.) OT Problem 1 OT Problem #1 Knowledge Deficit OT Goal 1 Goal / Goal Update 1. Patient to be independent with instructed materials. ---OT POC UPDATE 11/24/23--- 1. Met, continue as HEP is progressed Target Visit 20 OT Problem 2 OT Problem #2 Impaired Strength OT Goal 1 Goal / Goal Update Improved functional strength of the right UE as demonstrated by: 1. Improved functional shoulder flexion to facilitate improve forward reach during ADLs to 80 degrees. 2. Improved functional finger extension strength as demonstrated by being able to open his hand enough to locum tenens psychiatrist and release large cone (7 cm diameter). 3. Improved right locum tenens psychiatrist strength to 45 lbs. ---OT POC UPDATE 11/24/23--- 1. Progressing, not met, continue goal 2. Progressing, not met, continue 3. Progressing, not met, continue Target Visit 20 OT Problem 3 OT Problem #3 Impaired Flexibility OT Goal 1 Goal / Goal Update Improved flexibility of the (R) shoulder: 1. Improved external rotation to be able to touch the right hand to the back of his head. 2. Improved internal rotation to be able to touch the left hand to his right buttocks. ---OT POC UPDATE 11/24/23--- 1. Progressing, not met 2. Not met Target Visit 20
--- NOTE | 2023-12-05 11:36 | PCOTNOTE ---
Patient called & cancelled scheduled appointment this date due to not feeling well.
--- NOTE | 2024-01-09 10:52 | OTOPDC ---
Assessment and note entered by Aly Dick, JT/Melvina, SARAY OT D/C 01/09/24 Assessment Status Discharge Diagnosis Right spastic hemiplegia Subjective Information Patient reports feeling progress in the right UE since last month's re-evaluation. He reports he is feeling more confident to challenge himself to use the right hand to carry objects, such as grocery bags. Assessment OT Clinical Summary Patient referred to OT with dx of spastic hemiplegia of the right UE s/p CVA. He has been participating in aquatic and land therapy sessions with the focus on improving right UE flexibility, strength, and functional use. He continues to demonstrate functional improvements in the right UE. Functional reaching outside of tonal pattern is emerging. We have even progressed to beginning very basic fine motor activities. He continues to demonstrate limitations due to residual tone and weakness. He is going to have another round of Botox and continue to work on his own at this time . He is currently independent with all instructed materials. Plan of Care OT Services Indicated No
== END 2024-01-09 15:33 | disposition home or self-care (01) ==
LOC: ANHOT 10:00
PROVIDERS: PCP Internal Medicine; Visit Provider Nurse Practitioner Gerontology
DX: G81.11 Spastic hemiplegia affecting right dominant side (principal)
CPT/HCPCS: 97110; 97112; 97113; 97165; 97530